=== PATIENT | female | born 1965 | race Caucasian/White ===

== ENCOUNTER 2019-09-11 17:19 | Outpatient (CLI) | payer BC, SELFPAY ==
--- NOTE | ~2019-09-11 | XR_ITS ---
EXAMINATION: XR chest 2V DATE: 09/11/2019 17:32 INDICATION: Shortness of breath TECHNIQUE: PA and lateral views of the chest are obtained. COMPARISON: 06/04/2010 FINDINGS: The lungs are free of acute opacities. There is no pleural effusion or pneumothorax. The ca rdiomediastinal silhouette is normal. There is mild thoracic spondylosis. Surgical clips in the upper abdomen on the lateral view are likely from prior cholecystectomy. IMPRESSION: 1. No acute cardiopulmonary abnormality. Reviewed, dictated and finalized at location A.
== END 2019-09-11 17:20 ==
PROVIDERS: PCP Family Medicine; Visit Provider Nurse Practitioner Family
DX: R06.02 Shortness of breath (principal)
CPT/HCPCS: 71046

== ENCOUNTER → 2020-01-12 11:58 | Outpatient (CLI) | payer BC, SELFPAY ==
--- NOTE | ~2020-01-12 | XR_ITS ---
XR lumbar spine 2-3V DATE: 01/12/2020 12:19 INDICATION: Low back pain TECHNIQUE: Standing AP and lateral and coned lateral lumbosacral views COMPARISON: 08/08/2005 lumbar spine FINDINGS: There is diffuse osteopenia. No fracture or spondylolisthesis is evident. The included lower thoracic and lumbar pedicles are inta ct. Lumbar and lumbosacral interspaces are well preserved. Surgical clips overlie the right upper quadrant, consistent with cholecystectomy. IMPRESSION: Osteopenia Reviewed, dictated and finalized at location A. IMPRESSION: Osteopenia
== END ==
PROVIDERS: PCP Family Medicine; Visit Provider Physician Assistant Medical
DX: M54.5 Low back pain (principal); M85.88 Other specified disorders of bone density and structure, other site
CPT/HCPCS: 72100

== ENCOUNTER → 2020-01-31 11:36 | Outpatient (CLI) | payer BC, SELFPAY ==
--- NOTE | ~2020-01-31 | DEXA_ITS ---
Bone Density Report Name: Cary Jasso Age: 54 Sex: Female Ethnicity: White Date of : 1965 Indication: postmenopausal; screening for osteoporosis; parental hip fracture; height loss; hysterectomy; Referring Provider: Michelle Alberto Study: Bone densitometry was performed. Exam Date: January 31, 2020 Accession number: [id number] Bone Density: Region BMD T-score Z-score Classification AP Spine (L1-L4) 0.710 -3.1 -2.0 Osteoporosis Femoral Neck (Left) 0.571 -2.5 -1.5 Osteoporosis Total Hip (Left) 0.702 -2.0 -1.3 Osteopenia Femoral Neck (Right) 0.598 -2.3 -1.2 Osteopenia Total Hip (Right) 0.712 -1.9 -1.2 Osteopenia Total Hip Mean 0.707 -2.0 -1.3 Osteopenia World Health Organization criteria for BMD impression classify patients as: Normal (T-score at or above -1.0), Osteopenia (T-score between -1.0 and -2.5), or Osteoporosis (T-score at or below -2.5). 10-year Fracture Risk: FRAX not reported because: Some T-score for Spine Total or Hip Total or Femoral Neck at or below -2.5 Clinical Information Provided by Patient: Parent has had a hip fracture Has the following medical conditions: Hysterectomy Patient maximum height was 66 Menopause Age: 30 No regular weight bearing exercise Does not regularly consume dairy products Drinks caffeinated beverages Onset of menses at age 12 Number of children 2 Impression: The patient has osteoporosis, based on the Total Spine T-score. The patient has risk factors, including: parental hip fracture. Discussion: HIGH RISK OF FRACTURE. BONE DENSITY IS UNDESIRABLY LOW AT ONE OR MORE SKELETAL SITES, CONSISTENT WITH OSTEOPOROSIS. ALSO, BONE DENSITY IS LOWER THAN EXPECTED FOR AGE AND SEX AT ONE OR MORE SKELETAL SITES; RECOMMEND A DILIGENT SEARCH FOR SECONDARY CAUSES OF BONE LOSS. This patient's lowest T-score meets the World Health Organization's (WHO) criteria for osteoporosis at one or more sites (T-score -2.5 or below). In untreated patients, the risk of osteoporotic fracture increases approximately two-fold for each 1.0 SD decrease in T-score. Low bone density is not the only risk factor for fracture; also consider factors such as patient's age, frailty or poor health, risk of falling, risk of injury, previous osteoporotic fracture, family history of osteoporosis, cigarette smoking, low body weight, etc. Not everyone with low bone mineral density has osteoporosis; osteomalacia and other metabolic bone disorders should also be considered. Patients who have osteoporosis should be evaluated for specific diseases and conditions (secondary causes) that may cause or contribute to bone loss. The [place] [employer]ocr[employer] (AACE) and National Osteoporosis Foundation (NOF) recommend pharmacologic intervention for all postmenopausal women whose T-score is in this
== END ==
PROVIDERS: PCP Family Medicine; Visit Provider Nurse Practitioner Family
DX: M85.88 Other specified disorders of bone density and structure, other site (principal); M81.0 Age-related osteoporosis without current pathological fracture; M85.852 Other specified disorders of bone density and structure, left thigh; M85.851 Other specified disorders of bone density and structure, right thigh
CPT/HCPCS: 77080

== ENCOUNTER → 2020-03-08 14:51 | Outpatient (CLI) | payer BC, SELFPAY ==
--- NOTE | ~2020-03-08 | MM_ITS ---
EXAMINATION: MM screening hernan BI w gautam HISTORY: Screening TECHNIQUE: Craniocaudal and mediolateral oblique 3-D tomosynthesis images were obtained and synthetic 2-D images were generated. CAD analysis was submitted and interpreted. COMPARISON: Comparison to multiple prior studies sequentially, with oldest reviewed study dated 01/2010. BREAST PARENCHYMAL COMPOSITION: There are scattered areas of fibroglandular density. FINDINGS: The right breast is stable without evidence for malignancy. There is a new cluster of branc sanford pleomorphic calcifications in the upper outer quadrant of the left breast. IMPRESSION: 1. New cluster of pleomorphic branching calcifications, upper outer quadrant of the left breast, midd le depth. 2. Magnification views are recommended. BI-RADS Category 0: Incomplete: Needs additional imaging evaluation. Reviewed, dictated and finalized at location A. IMPRESSION: 1. New cluster of pleomorphic branching calcifications, upper outer quadrant of the left breast, middle depth. 2. Magnification views are recommended. BI-RADS Category 0: Incomplete: Needs additional imaging evaluation.
== END ==
PROVIDERS: PCP Family Medicine; Visit Provider Family Medicine
DX: Z12.31 Encounter for screening mammogram for malignant neoplasm of breast (principal); R92.8 Other abnormal and inconclusive findings on diagnostic imaging of breast
CPT/HCPCS: 77063; 77067

== ENCOUNTER → 2020-03-22 08:30 | Outpatient (CLI) | payer BC, SELFPAY ==
--- NOTE | ~2020-03-22 | MM_ITS ---
EXAMINATION: MM diagnostic mammo unilat LT HISTORY: Microcalcifications TECHNIQUE: Additional 3-D ML tomosynthesis images and magnification views of the left breast were per formed and synthetic 2-D images were generated. CAD analysis was submitted and interpreted. COMPARISON: 01/10/2019 bilateral digital screening mammogram 03/08/2020 bilateral digital screening mammogram FINDINGS: There is a new cluster of grouped pleomorphic microcalcifications in the upper outer quadra nt of the left breast at mid depth, including linear and branching microcalcifications, very suspicio us for malignancy. Stereotactic biopsy is recommended. IMPRESSION: 1. New grouped pleomorphic microcalcifications in upper outer quadrant of left breast at mid depth, s uspicious for malignancy 2. Stereotactic biopsy is recommended BI-RADS category 4, suspicious findings. Dr. Teague telephoned the results and stereotactic biopsy recommendation to Dr. Moses's nurse practi lupillo Martinez on 03/22/2020 at 0902 hours. Reviewed, dictated and finalized at location A. IMPRESSION: 1. New grouped pleomorphic microcalcifications in upper outer quadrant of left breast at mid depth, suspicious for malignancy 2. Stereotactic biopsy is recommended BI-RADS category 4, suspicious findings. Dr. Teague telephoned the results and stereotactic biopsy recommendation to Dr. Elena paulson's nurse practitioner Michelle on 03/22/2020 at 0902 hours.
== END ==
PROVIDERS: Visit Provider Nurse Practitioner Family
DX: R92.8 Other abnormal and inconclusive findings on diagnostic imaging of breast (principal)
CPT/HCPCS: 77065

== ENCOUNTER 2020-04-02 10:39 | Outpatient (CLI) | payer BC, SELFPAY ==
--- NOTE | ~2020-04-02 | MM_ITS ---
MM stereotactic specimen LT, MM post biopsy diagnostic LT, MM stereotactic bx LT 04/02/2020 11:49 (accession [id number]), 04/02/2020 11:48 (accession [id number]), 04/02/2020 11:46 (accession [id number]) EXAMINATION: MM stereotactic specimen LT, MM post biopsy diagnostic LT, MM stereotactic bx LT INDICATION: Abnormal calcifications in the left breast. Stereotactic core biopsy is requested evalua te for malignancy.] TECHNIQUE AND FINDINGS: The risks and potential benefits of the procedure were discussed with the patient and written informe d consent was obtained. The patient was placed in the prone position clustered at the table with the left breast in mediolateral compression, and the area of interest was localized and targeted utilizi ng digital imaging with stereotaxis. After sterile preparation of the skin, 1% lidocaine was utilized for local anesthesia at the skin pun cture site and 1% lidocaine with epinephrine was utilized for deeper local anesthesia/is about the bi opsy site. A 9G Conexus-IT vacuum assisted biopsy needle was advanced to the level of the calcification o f interest from a lateral approach utilizing stereotactic guidance and a total of 8 tissue core biops ies were obtained. A specimen radiograph demonstrates that the calcifications of interest are included within the tissue cores. A tissue marker clip was then placed at the biopsy site. The needle was removed and hemosta sis was achieved. The patient tolerated the procedure well and there is no evidence of significant i mmediate complication. The patient was given verbal as well as written postprocedural instructions p rior to discharge from the department. Tissue cores were submitted to surgical pathology for histolo gic analysis. A 2-view left unilateral digital mammogram was obtained post procedure and this demonstrates that the tissue marker clip is in expected position.] IMPRESSION: 1. Successful stereotactic biopsy of calcifications in the upper outer quadrant of the left breast, followed by tissue marker clip placement. Please refer to pathology report for histologic analysis. Reviewed, dictated and finalized at location A. IMPRESSION: 1. Successful stereotactic biopsy of calcifications in the upper outer quadran t of the left breast, followed by tissue marker clip placement. Please refer t o pathology report for histologic analysis. IMPRESSION: 1. Successful stereotactic biopsy of calcifications in the upper outer quadran t of the left breast, followed by tissue marker clip placement. Please refer t o pathology report for histologic analysis.
== END 2020-04-02 10:40 | disposition home or self-care (01) ==
PROVIDERS: PCP Family Medicine; Visit Provider Nurse Practitioner Family
DX: R92.8 Other abnormal and inconclusive findings on diagnostic imaging of breast (principal); C50.412 Malignant neoplasm of upper-outer quadrant of left female breast
CPT/HCPCS: 19081; 77065; 88305; 88342; A4648

== ENCOUNTER 2020-04-24 01:47 | Outpatient (CLI) | payer BC, SELFPAY ==
[2020-04-24 18:17] LABS: SARS-CoV-2 RNA PCR Negative
== END 2020-04-24 01:48 | disposition home or self-care (01) ==
LOC: ANHCOVIDDT 01:47
PROVIDERS: PCP Family Medicine; Visit Provider Surgery
DX: Z01.812 Encounter for preprocedural laboratory examination (principal); Z20.828 Contact with and (suspected) exposure to other viral communicable diseases
CPT/HCPCS: 87635; C9803; U0003

== ENCOUNTER 2020-04-24 09:04 | Outpatient (CLI) | payer BC, SELFPAY ==
--- NOTE | 2020-04-24 09:06 | ECG_ITS ---
Measurements Intervals [place] Rate: 86 P: 9 AR: 115 QRS: 37 QRSD: 94 T: -18 QT: 367 QTc: 439 Interpretive Statements SINUS RHYTHM WITH SHORT AR INTERVAL LOW QRS VOLTAGE IN PRECORDIAL LEADS DELAYED PRECORDIAL R/S TRANSITION BORDERLINE ST-T WAVE ABNORMALITY- ANTEROLAT/INF LEADS BORDERLINE ECG Electronically Signed On 04-24-2020 9:48:50 CDT by Braydon Ojeda D.O.
== END 2020-04-24 09:05 | disposition home or self-care (01) ==
LOC: ANHSURGERY 09:06
PROVIDERS: PCP Family Medicine; Visit Provider Surgery
DX: E78.5 Hyperlipidemia, unspecified (principal); Z01.818 Encounter for other preprocedural examination; R94.31 Abnormal electrocardiogram [ECG] [EKG]
CPT/HCPCS: 93005

== ENCOUNTER 2020-04-26 01:38 | Day surgery (SDC) | payer BC, SELFPAY ==
[2020-04-17 14:28] VITALS: BMI 25.8
[2020-04-26] VITALS (9 sets, daily range): BP systolic 93–112; BP diastolic 50–68; PULSE 77–89; RESP 13–18; TEMP 36.2–36.8; O2SAT 93–99
--- NOTE | ~2020-04-26 | NM_ITS ---
EXAMINATION: NM sentinel node inject only INDICATION: Ductal carcinoma in situ of the left breast TECHNIQUE: 1.033 mCi Tc 99m Lymphoseek were injected in 4 aliquots in the upper outer quadrant of the breast near the areola. No images were obtained. IMPRESSION: 1. Status post left breast sentinel lymph node radiopharmaceutical injection. Reviewed, dictated and finalized at location A.
--- NOTE | ~2020-04-26 | MM_ITS ---
EXAMINATION: MM needle loc LT, MM surgical specimen LT DATE: 04/26/2020 12:13 (accession [id number]), 04/26/2020 15:33 (accession [id number]) INDICATION: Carcinoma in situ of the left breast TECHNIQUE: The procedure for a mammography-guided needle localization was discussed with the patient. Risks and benefits were detailed including risks of bleeding and infection. The patient verbalized u nderstanding and agreed to proceed. A time out was performed to verify the patient's name, date of , and site of procedure. The julianne ent was placed in mediolateral compression, and the skin overlying the outer left breast was prepared in usual fashion. The skin and subcutaneous soft tissues were infiltrated with 1% lidocaine for loca l anesthesia. Utilizing mammography guidance, a needle was advanced into the left breast. Two confirm atory films were obtained. The patient tolerated procedure without immediate complication. A specimen radiograph was performed. FINDINGS: Two view confirmatory films of the left breast demonstrate a needle with tip adjacent to th e biopsy marker. The biopsy marker and suspicious calcifications are contained within the surgical sp ecimen. IMPRESSION: 1. Successful mammography-guided left breast needle localization. Reviewed, dictated and finalized at location A. IMPRESSION: 1. Successful mammography-guided left breast needle localization.
--- NOTE | 2020-04-26 11:28 | SUR.PREOP ---
1100: PT TO MAMMS/US FOR LT BREAST NL WITH SNMI TO FOLLOW.DR. ARELLANO AWARE.
[2020-04-26] MEDS: LACTATED RINGERS 1,000 ML 30 ML IV CONT ×2 (12:45→16:04)
--- NOTE | 2020-04-26 13:11 | P.PNAN_ITS ---
Anes - Initial Pre Proc Eval Procedure: Operation Date: 04/26/20 13:30 Proposed Procedures p Left Axillary [place] Lymph Node Biopsy - Quirino Mancilla MD s Left Breast Lumpectomy With Ultrasound And/Or Mammogram Guided Needle Localization - Quirino Mancilla MD Date/Time: 04/26/20 13:11 Surgeon: Quirino Mancilla MD Pre Op Diagnosis: DCIS Left Breast Patient Data Age: 54 Gender: F Height: 1.68 m Weight: 73.3 kg Last Vital Signs Temp 36.8 C 04/26/20 10:32 Pulse 89 04/26/20 10:32 Resp 18 04/26/20 10:32 BP 106/68 04/26/20 10:32 Pulse Ox 98 04/26/20 10:32 Allergies Allergy/AdvReac Type Severity Reaction Status Date / Time Influenza Virus Vaccines Allergy Severe RASH Verified 04/26/20 11:20 codeine Allergy Unknown VOMITING, Verified 04/26/20 11:20 HIVES Sulfa (Sulfonamide AdvReac Mild Hives Verified 04/26/20 11:20 Antibiotics) Home Medications Medication Instructions Recorded Confirmed Type rosuvastatin 20 mg tablet 20 mg PO DAILY #90 tablet 02/28/20 04/26/20 Rx calcium carbonate 600 mg (1,500 1 cap PO DAILY 04/15/20 04/26/20 History mg)-vitamin D3 500 unit capsule alendronate 70 mg PO WEEKLY 04/17/20 04/26/20 History doxylamine succinate [Unisom 50 mg PO HS PRN 04/17/20 04/26/20 History (doxylamine)] trazodone 50 - 100 mg PO HS 04/17/20 04/26/20 History Patient hx anesthesia problems: none Family hx anesthesia problems: none [facility] Past Medical History Medical History Carcinoma of left breast Hyperlipidemia Surgical History Surgical History H/O left breast biopsy excisional bx left breast H/O oophorectomy H/O total hysterectomy History of tubal ligation Hx laparoscopic cholecystectomy Hx of cardiac cath Family History Family History Sibling Family history of malignant neoplasm of breast in first degree relative Father Family history of Alzheimer's disease Family history of congestive heart failure Other Family history of malignant neoplasm of breast Social History Social History (Reviewed 04/15/20 @ 13:12 by Alyssa Powers [facility]) Smoking packs per day: 0.75 Smoking cigarettes per day: 15.0 Years smoked: 35 Smoking pack-years: 26.25 Smoking status: Current every day smoker Tobacco type: cigarettes Second hand tobacco smoke exposure: Yes Smoking end date: 06/28/93 Alcohol intake: current Spiritual care concerns: No Anes - Eval Final PreProcedure Day of Procedure 04/26/20 13:11 Patient weight: overweight Heart: regular rate and rhythm Lungs: clear to auscultation and normal air movement Airway: Mallampati scale class 1 Neurological: alert and oriented Last oral intake: >/= 8 hours ASA classification: III Emergent: no Anesthetic plan: proceed Anesthesia type and monitoring: general LMA and standard monitoring Informed Consent: The patient's anesthetic plan and its attendant risks and benefits were discussed with the patient/family/POA. Questions were solicited and answers provided to the satisfaction of the patient/family/POA.
--- NOTE | 2020-04-26 13:40 | WPDHPUPDATE1 ---
History and Physical Update Update Date/Time: 04/26/20 13:40 History and Physical has been reviewed, including an updated exam of the patient. There are NO changes in the patient's condition. Risks, benefits, and alternatives have been discussed and questions answered. Patient agrees to proceed with procedure.
[2020-04-26] MEDS: ceFAZolin 2 GM/D5W 50 ML 2 GM/50 ML BAG IVPB (14:00)
[2020-04-26] MEDS: BUPIVACAINE/EPINEPHRINE 0.5% 10 ML VIAL 20 ML INFILTRATE (15:55)
[2020-04-26] MEDS: ISOSULFAN BLUE 1% INJ 5 ML VIAL SUB-Q (16:05)
--- NOTE | 2020-04-26 16:07 | SUR.OPER ---
Lumpectomy Incision @ 1511 Excision @ 1524 Out of room @ 1526 Mammography specimen tip and calcifications confirmation @ 1534
[2020-04-26] MEDS: fentaNYL CITRATE INJ (*CRX) 100 MCG/2 ML VIAL 25 MCG IV PUSH ×2 (16:31→16:36)
--- NOTE | 2020-04-26 17:06 | PM.PROC ---
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 She also had infiltration of radioisotope under the left nipple for sentinel node biopsy. Following this, I reviewed the x-rays and talked with Dr. Waller, the radiologist. The patient was taken to surgery and induced into general anesthesia per LMA. The left breast as well as the left axilla were prepped and draped. The left arm and shoulder were prepped and draped such that the arm was mobile and prepped into the field. Care was taken as to not disturb the localizing wire emanating from the lateral aspect of the left breast. Lymphazurin blue dye was infiltrated under the left nipple. Gentle breast massage was carried out to allow this to migrate to axillary lymph nodes. I then used the navigator and searched for lymph nodes with high isotope emission. A particular area was found and marked with an X. I then marked a hairline incision in the left axilla. Local anesthesia was infiltrated in this proposed incision. Incision was made and dissection was carried down through the superficial subcutaneous. I then used the navigator again and focused further dissection in the direction of the high isotope emission. We saw dye stained lymphatics and eventually found a very high isotope emitting lymph node consistent with sentinel lymph node 1. This node did not have dye staining. It did seem to be associated with the dye stained lymphatics. This node was dissected free primarily with the cautery. Lymphatics were clipped. Once out of the field, I checked the lymph node again and it had very high isotope emission. It was sent to pathology labeled sentinel lymph node 1. I then searched for additional sentinel lymph nodes in the left axilla. I could not find any that had the isotope emission of sentinel node 1, but did find some deeper in the axilla with fairly high isotope emission. No further lymphatics of dye staining were encountered. I dissected out this additional lymph node. It did not have dye staining. Once dissected out I rechecked it with the navigator and again a high isotope emission was found. This was sent as sentinel lymph node 2. I searched for additional nodes and really none were found. I dissected out a lymph node but it really did not have much in the way of isotope emission. It was sent as an additional left axillary node, not a sentinel lymph node. From there we checked the axilla for hemostasis which was excellent. The axilla was closed in layers with a deep layer of interrupted 3 0 Monocryl. The superficial layer of 3 0 Monocryl subcuticular skin sutures was placed. Finally the axillary wound was closed at the skin level with a running 4 0 Monocryl skin suture. The area was cleaned and a blue towel was placed over the area to quarantine it from the breast surgery. We then turned our attention to the left breast. After again reviewing the films, a radial type incision in the lateral left breast just medial to the exit of the guidewire was marked on the skin. Local was infiltrated in the area of the anticipated incision. Incision was made and dissection was carried down obliquely until we encountered the wire. The wire was then pulled through the skin and out the wound. I dissected posterior to the wire so that it was more mobile. We continued our subcutaneous dissection a bit more and then proceeded with the lumpectomy. A generous lumpectomy was created taking all the tissue around the wire with the fairly uniform radius of about 3 cm. I continu
[2020-04-26] MEDS: oxyCODONE HCL (*CRX) 5 MG TAB IR PO (17:48)
== END 2020-04-26 18:25 | disposition home or self-care (01) ==
PROVIDERS: PCP Family Medicine; Visit Provider Surgery
PROC: (CPT 38525; principal; 2020-04-26 13:30)
PROC: (CPT 19301; 2020-04-26 13:30)
DX: D05.12 Intraductal carcinoma in situ of left breast (principal); E78.5 Hyperlipidemia, unspecified; Z87.891 Personal history of nicotine dependence
CPT/HCPCS: 19301; 38525; 19281; 38792; 76098; 88305; 88307; 88342; A9270; A9520; C1713; C1769; J0690; J1100; J2250; J2405; J2704; J3010; J7120

== ENCOUNTER 2020-04-28 19:31 | Emergency (ER) | payer BC, SELFPAY ==
[2020-04-28 19:38] VITALS: BP 132/81; PULSE 103; RESP 18; TEMP 36.3; O2SAT 97
--- NOTE | 2020-04-28 19:44 | ED.NAVMDI ---
HPI - Nausea/Vomiting/Diarrhea General Chief complaint: Nausea/Vomiting/Diarrhea Stated complaint: n/v,WILSON, post op Time Seen by Provider: 04/28/20 19:43 History of Present Illness HPI Narrative: 54 yo female w/ h/o hyperlipidemia, DCIS presents to the ED for nausea, vomiting, and headache. She has felt nauseated and vomited a few times throughout the day today. She also reports a moderate intermittent frontal headache. She had a lumpectomy and sentinel node biopsy done on Wednesday by Dr. Mancilla. She is concerned that she might have an infection of her surgical site because of her symptoms. Related Data Home Medications Medication Instructions Recorded Confirmed calcium carbonate 600 mg (1,500 1 cap PO DAILY 04/15/20 04/26/20 mg)-vitamin D3 500 unit capsule Unisom (doxylamine) 50 mg PO HS PRN 04/17/20 04/26/20 alendronate 70 mg PO WEEKLY 04/17/20 04/26/20 trazodone 50 - 100 mg PO HS 04/17/20 04/26/20 Allergies Allergy/AdvReac Type Severity Reaction Status Date / Time Influenza Virus Vaccines Allergy Severe RASH Verified 05/09/20 08:54 codeine Allergy Unknown VOMITING, Verified 05/09/20 08:54 HIVES Sulfa (Sulfonamide AdvReac Mild Hives Verified 05/09/20 08:54 Antibiotics) Review of Systems Review of Systems: All systems reviewed & are unremarkable except as noted in HPI and below Constitutional: Constitutional: Denies fever(s) Cardiovascular: Cardiovascular: Denies chest pain Respiratory: Respiratory: Denies cough and Denies dyspnea Gastrointestinal: Gastrointestinal: Denies abdominal pain, Reports nausea and Reports vomiting Genitourinary: Genitourinary: Denies hematuria and Denies dysuria [facility] Past Medical History Medical History Carcinoma of left breast Hyperlipidemia Surgical History Surgical History H/O left breast biopsy excisional bx left breast H/O oophorectomy H/O total hysterectomy History of tubal ligation Hx laparoscopic cholecystectomy Hx of cardiac cath Family History Family History Sibling Family history of malignant neoplasm of breast in first degree relative Father Family history of Alzheimer's disease Family history of congestive heart failure Other Family history of malignant neoplasm of breast Social History Social History Smoking packs per day: 0.75 Smoking cigarettes per day: 15.0 Years smoked: 35 Smoking pack-years: 26.25 Tobacco type: cigarettes Second hand tobacco smoke exposure: Yes Smoking end date: 06/28/93 Alcohol intake: current Spiritual care concerns: No Exam Const: General: no acute distress and alert Orientation/consciousness: patient oriented x3 HENMT: Head: normal to inspection Neck: Neck: normal visual inspection Chest: Other: Significant bruising arouns left breast incision. No significant warmth or induration. Resp: Effort & Inspection: normal respiratory effort Auscultation: clear to auscultation bilaterally, no rales, no rhonchi and no wheezes Cardio: Rate: regular rate Rhythm: regular rhythm Heart sounds: no murmurs GI: Inspection: non-distended GI Palp: Yes Soft to palpation and No Tenderness to palpation present (GI) Neuro: General: patient oriented x3 and moves all extremities Speech: normal speech Extrem: General: no edema Psych: Appearance: well kempt Affect: normal affect Course Vital Signs Vital signs: Vital Signs Temperature 36.3 C L 04/28/20 19:38 Pulse Rate 103 H 04/28/20 19:38 Respiratory Rate 18 04/28/20 19:38 Blood Pressure 132/81 04/28/20 19:38 Pulse Oximetry 97 04/28/20 19:38 Temperature 36.3 C L 04/28/20 19:38 Pulse Rate 83 04/28/20 21:34 Respiratory Rate 16 04/28/20 21:34 Blood Pressure 121/70 04/28/20 21:34 Pulse Oximetry 9
[2020-04-28] MEDS: METOCLOPRAMIDE HCL INJ 10 MG/2 ML VIAL IV PUSH (20:20)
[2020-04-28] MEDS: SODIUM CHLORIDE 0.9% IV 1,000 ML 999 ML IV CONT (20:21)
[2020-04-28 20:28] LABS: Basophils Percent Auto 0.2 % (0.2-1.2); Eosinophils Absolute Auto 0.2 K/mm3 (0-0.3); Eosinophils Percent Auto 1.4 % (0-4.4); Hematocrit 44.4 % (37.0-47.0); Hemoglobin 14.3 g/dL (12.0-15.0); Immature Granulocyte Absolute 0.07 K/mm3 (0.00-0.031); Immature Granulocyte Percent A 0.5 % (0-0.5); Lymphocytes Absolute Auto 1.99 K/mm3 (0.9-3.2); Lymphocytes Percent Auto 15.6 % (18.3-44.2); Mean Corpuscular HGB Conc 32.2 g/dl (32-36); Mean Corpuscular Hemoglobin 27.8 pg (26-34); Mean Corpuscular Volume 86.4 fl (80-100); Mean Platelet Volume 10.1 fl (7.4-10.4); Monocytes Absolute Auto 0.8 K/mm3 (0.1-0.6); Neutrophils Absolute Auto 9.7 K/mm3 (1.3-6.7); Neutrophils Percent Auto 76.3 % (45.5-73.1); Platelet Count Result 329 k/mm3 (150-375); Red Blood Count 5.14 M/mm3 (4.2-5.4); Red Cell Distribution Width 13.8 % (11.5-14.5); White Blood Count 12.8 K/mm3 (4.5-10.0)
[2020-04-28 20:50] LABS: Alanine Aminotransferase 247 U/L (4-35); Albumin Level 4.3 g/dL (3.5-5.1); Alkaline Phosphatase 115 U/L (38-126); Anion Gap 9 mmol/L (8-16); Aspartate Amino Transferase 87 U/L (14-36); Bilirubin,Total 0.4 mg/dL (0.2-1.3); Blood Urea Nitrogen 8 mg/dL (7-17); Calcium 9.3 mg/dL (8.4-10.2); Carbon Dioxide 27 mmol/L (22-30); Chloride 103 mmol/L (98-107); Estimated CRCL calculation 74 ml/min; Estimated Glomerular Filt Rate > 60; Glucose 132 mg/dL (65-105); Potassium 3.8 mmol/L (3.4-5.0); Sodium 139 mmol/L (137-145)
[2020-04-28 20:59] LABS: Add Urine Microscopic? YES; Appearance Urine Clear (Clear); Bacteria Urine Trace /hpf; Bilirubin Urine Negative (Negative); Blood Urine 1+ (Negative); Color Urine Straw (Yellow); Glucose Urine UA Negative (Negative); Ketones Urine Negative (Negative); Leukocyte Esterase Ur Negative LEU/UL (Negative); Nitrate Urine Negative (Negative); Protein Urine Negative (Negative); RBC Urine 0-2 /hpf (0-2); Specific Grav Ur 1.005 (1.001-1.035); Squamous Epithelial Cell Urine Occasional /hpf (Few); Urobilinogen Urine Negative mg/dL (<2.0); WBC Urine 0-3 /hpf
[2020-04-28 21:34] VITALS: BP 121/70; PULSE 83; RESP 16; O2SAT 98
== END 2020-04-28 22:00 | disposition home or self-care (01) ==
PROVIDERS: Emergency Provider Emergency Medicine; PCP Family Medicine
DX: R11.2 Nausea with vomiting, unspecified (principal); E78.5 Hyperlipidemia, unspecified; Z85.3 Personal history of malignant neoplasm of breast; F17.210 Nicotine dependence, cigarettes, uncomplicated
CPT/HCPCS: 36415; 80053; 81001; 85025; 96361; 96365; 96375; 99284; J0131; J2765; J7030

== ENCOUNTER 2020-09-05 12:06 | Emergency (ER) | payer BC, SELFPAY ==
--- NOTE | ~2020-09-05 | XR_ITS ---
EXAMINATION: XR ankle RT min 3V INDICATION: Right ankle pain TECHNIQUE: Four views of the right ankle are obtained. COMPARISON: None available FINDINGS: There is no fracture, dislocation, or subluxation. The bones, soft tissues, and joint space s are normal. IMPRESSION: 1. No acute osseous abnormality. Reviewed, dictated and finalized at location A. CTOR IMMUNOLOGY
[2020-09-05 12:23] VITALS: BP 116/78; PULSE 97; RESP 16; TEMP 36.2; O2SAT 97
--- NOTE | 2020-09-05 13:19 | ED.GENADULT ---
HPI - General Adult General Chief complaint: Extremity Injury, Lower <Heber Sepulveda PA-C - Last Filed: 09/05/20 13:22> Stated complaint: right ankle injury <Heber Sepulveda PA-C - Last Filed: 09/05/20 13:22> Time Seen by Provider: 09/05/20 12:34 <Heber Sepulveda PA-C - Last Filed: 09/05/20 13:22> Source: patient <Heber Sepulveda PA-C - Last Filed: 09/05/20 13:22> Mode of arrival: ambulatory <Heber Sepulveda PA-C - Last Filed: 09/05/20 13:22> Limitations: no limitations <Heber Sepulveda PA-C - Last Filed: 09/05/20 13:22> History of Present Illness HPI narrative: Patient is a 55-year-old female who presents to emergency department for evaluation of right ankle injury that occurred today while walking noting that she rolled the ankle patient notes mild aching pain worse with weightbearing and activity denies other injuries or complaints has not take anything for her symptoms presents per private vehicle in no distress <Heber Sepulveda PA-C - Last Filed: 09/05/20 13:22> Related Data Home medications: Home Medications Medication Instructions Recorded Confirmed calcium carbonate 600 mg (1,500 1 cap PO DAILY 04/15/20 09/02/20 mg)-vitamin D3 500 unit capsule tamoxifen mg 09/05/20 09/05/20 <Heber Sepulveda PA-C - Last Filed: 09/05/20 13:22> Allergies/adverse reactions: Allergies Allergy/AdvReac Type Severity Reaction Status Date / Time Influenza Virus Vaccines Allergy Severe RASH Verified 09/05/20 12:07 codeine Allergy Unknown VOMITING, Verified 09/05/20 12:07 HIVES Sulfa (Sulfonamide AdvReac Mild Hives Verified 09/05/20 12:07 Antibiotics) <Heber Sepulveda PA-C - Last Filed: 09/05/20 13:22> Review of Systems Review of Systems: All systems reviewed & are unremarkable except as noted in HPI and below <Heber Sepulveda PA-C - Last Filed: 09/05/20 13:22> PMFSH Past Medical History Medical History: Medical History BMI 25.0-25.9,adult Carcinoma of left breast Hyperlipidemia <Heber Sepulveda PA-C - Last Filed: 09/05/20 13:22> Surgical History Surgical History: Surgical History H/O left breast biopsy excisional bx left breast H/O oophorectomy H/O total hysterectomy History of tubal ligation Hx laparoscopic cholecystectomy Hx of cardiac cath S/P breast lumpectomy 04/26/20: NL left breast lumpectomy left axillary SNBX <Heber Sepulveda PA-C - Last Filed: 09/05/20 13:22> Family History Family History: Family History Sibling Family history of malignant neoplasm of breast in first degree relative Father Family history of Alzheimer's disease Family history of congestive heart failure Familial hyperlipidemia Mother Hyperlipidemia Dementia Sibling No problems noted. 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 HEAD: Normocephalic, atraumatic. EYES: PERRLA and EOMI. ENT: Nares clear, no rhinorrhea or epistaxis. Mucous membranes moist. EXTREMITIES: Normal range of motion. No edema. Tenderness of the later
== END 2020-09-05 13:46 | disposition home or self-care (01) ==
PROVIDERS: Emergency Provider General Practice; PCP Family Medicine
DX: E78.5 Hyperlipidemia, unspecified (principal); Z85.3 Personal history of malignant neoplasm of breast; F17.210 Nicotine dependence, cigarettes, uncomplicated; M25.571 Pain in right ankle and joints of right foot; X50.9XXA Other and unspecified overexertion or strenuous movements or postures, initial encounter
CPT/HCPCS: 73610; 99283

== ENCOUNTER 2020-12-04 09:22 | Outpatient (CLI) | payer BC, SELFPAY ==
[2020-12-04 09:45] LABS: Basophils Percent Auto 0.3 % (0.2-1.2); Eosinophils Absolute Auto 0.1 K/mm3 (0-0.3); Eosinophils Percent Auto 0.7 % (0-4.4); Hematocrit 43.7 % (37.0-47.0); Immature Granulocyte Absolute 0.04 K/mm3 (0.00-0.031); Immature Granulocyte Percent A 0.3 % (0-0.5); Lymphocytes Absolute Auto 1.37 K/mm3 (0.9-3.2); Lymphocytes Percent Auto 9.9 % (18.3-44.2); Mean Corpuscular Hemoglobin 27.6 pg (26-34); Mean Corpuscular Volume 86.2 fl (80-100); Mean Platelet Volume 10.6 fl (7.4-10.4); Monocytes Absolute Auto 0.7 K/mm3 (0.1-0.6); Monocytes Percent Auto 5.3 % (2.6-8.5); Neutrophils Absolute Auto 11.6 K/mm3 (1.3-6.7); Neutrophils Percent Auto 83.5 % (45.5-73.1); Platelet Count Result 267 k/mm3 (150-375); Red Blood Count 5.07 M/mm3 (4.2-5.4); Red Cell Distribution Width 14.1 % (11.5-14.5); White Blood Count 13.9 K/mm3 (4.5-10.0)
[2020-12-04 09:49] LABS: Blood Urea Nitrogen 21 mg/dL (8-26); Carbon Dioxide 23 mmol/L (22-30); Chloride 107 mmol/L (98-109); Estimated Glomerular Filt Rate > 60; Glucose 101 mg/dL (70-105); Potassium 4.7 mmol/L (3.5-4.9); Sodium 141 mmol/L (138-146)
[2020-12-04 11:10] LABS: Cholesterol 202 mg/dL (0-200); HDL Direct 50 mg/dL; Triglycerides 213 mg/dL (<150)
[2020-12-04 11:13] LABS: Alanine Aminotransferase 14 U/L (4-35); Albumin Level 4.3 g/dL (3.5-5.1); Alkaline Phosphatase 62 U/L (38-126); Anion Gap 11 mmol/L (8-16); Aspartate Amino Transferase 27 U/L (14-36); Bilirubin,Total 0.2 mg/dL (0.2-1.3); Blood Urea Nitrogen 19 mg/dL (7-17); Calcium 9.6 mg/dL (8.4-10.2); Carbon Dioxide 21 mmol/L (22-30); Chloride 110 mmol/L (98-107); Estimated Glomerular Filt Rate > 60; Glucose 100 mg/dL (65-105); Potassium 4.7 mmol/L (3.4-5.0); Sodium 142 mmol/L (137-145)
[2020-12-04 11:21] LABS: LDL Cholesterol Direct 97 mg/dL
== END 2020-12-04 09:23 | disposition home or self-care (01) ==
LOC: ANHLAB 09:26
PROVIDERS: Physician Assistant Medical; PCP Family Medicine; Visit Provider Internal Medicine Hematology & Oncology
DX: E78.5 Hyperlipidemia, unspecified (principal)
CPT/HCPCS: 36415; 80048; 80053; 80061; 85025

== ENCOUNTER → 2021-04-03 07:40 | Outpatient (CLI) | payer BC, SELFPAY ==
--- NOTE | ~2021-04-03 | MMUS_ITS ---
EXAMINATION: MM diagnostic hernan BI w gautam, US breast RT limited HISTORY: History of left breast cancer and palpable abnormality at the 6:00 location of the right flavia ast. TECHNIQUE: Craniocaudal, mediolateral, and mediolateral oblique 3-D tomosynthesis images of the breas ts were performed and synthetic 2-D images were generated. CAD analysis was submitted and interpreted . High resolution limited right breast ultrasound was performed. COMPARISON: 03/22/2020, 03/08/2020, 01/10/2019, 12/07/2017 BREAST PARENCHYMAL COMPOSITION: There are scattered areas of fibroglandular density. FINDINGS: MAMMOGRAPHIC FINDINGS: There are changes of interval lumpectomy, axillary lymph node dissection, and radiation treatment in the left breast. No suspicious mass, calcification, or architectural distortion are identified in eit her breast to suggest malignancy. There is no mammographic correlate for the reported palpable abnorm ality of the right breast. ULTRASOUND: There is no evidence of focal abnormal solid or cystic mass in the vicinity of the reported palpable abnormality of concern in the right breast. IMPRESSION: 1. Expected surgical and radiation change in the left breast without suspicious findings. No specific mammographic or sonographic correlate is identified for the reported abnormality of concern in the r ight breast. Further evaluation at this time should be based on clinical assessment. Continued follow -up physical examination is recommended. 2. Recommend routine screening mammography in one year. BI-RADS Category 2: Benign finding(s). Reviewed, dictated and finalized at location A. IMPRESSION: 1. Expected surgical and radiation change in the left breast without suspicious findings. No specific mammographic or sonographic correlate is identified for the reported abnormality of concern in the right breast. Further evaluation at this time should be based on clinical assessment. Continued follow-up physical examination is recommended. 2. Recommend routine screening mammography in one year. BI-RADS Category 2: Benign finding(s).
== END ==
PROVIDERS: PCP Family Medicine; Visit Provider Internal Medicine Hematology & Oncology
DX: D05.12 Intraductal carcinoma in situ of left breast (principal)
CPT/HCPCS: 76642; 77062; 77066; G0279

== ENCOUNTER 2021-04-09 13:30 | Outpatient (CLI) | payer BC, SELFPAY ==
[2021-04-09 13:45] LABS: Basophils Percent Auto 0.5 % (0.2-1.2); Eosinophils Absolute Auto 0.1 K/mm3 (0-0.3); Eosinophils Percent Auto 0.9 % (0-4.4); Hematocrit 42.9 % (37.0-47.0); Hemoglobin 13.5 g/dL (12.0-15.0); Immature Granulocyte Absolute 0.02 K/mm3 (0.00-0.031); Immature Granulocyte Percent A 0.2 % (0-0.5); Lymphocytes Absolute Auto 2.11 K/mm3 (0.9-3.2); Lymphocytes Percent Auto 26.1 % (18.3-44.2); Mean Corpuscular HGB Conc 31.5 g/dl (32-36); Mean Corpuscular Hemoglobin 27.7 pg (26-34); Mean Corpuscular Volume 87.9 fl (80-100); Mean Platelet Volume 10.1 fl (7.4-10.4); Monocytes Absolute Auto 0.4 K/mm3 (0.1-0.6); Monocytes Percent Auto 4.7 % (2.6-8.5); Neutrophils Absolute Auto 5.5 K/mm3 (1.3-6.7); Neutrophils Percent Auto 67.6 % (45.5-73.1); Platelet Count Result 286 k/mm3 (150-375); Red Blood Count 4.88 M/mm3 (4.2-5.4); Red Cell Distribution Width 14.1 % (11.5-14.5); White Blood Count 8.1 K/mm3 (4.5-10.0)
[2021-04-09 13:49] LABS: Blood Urea Nitrogen 8 mg/dL (8-26); Carbon Dioxide 27 mmol/L (22-30); Chloride 103 mmol/L (98-109); Estimated Glomerular Filt Rate > 60; Glucose 85 mg/dL (70-105); Potassium 3.4 mmol/L (3.5-4.9); Sodium 144 mmol/L (138-146)
[2021-04-09 16:34] LABS: Alanine Aminotransferase 18 U/L (4-35); Albumin Level 4.3 g/dL (3.5-5.1); Alkaline Phosphatase 44 U/L (38-126); Anion Gap 7 mmol/L (8-16); Aspartate Amino Transferase 40 U/L (14-36); Bilirubin,Total 0.4 mg/dL (0.2-1.3); Blood Urea Nitrogen 10 mg/dL (7-17); Calcium 9.3 mg/dL (8.4-10.2); Carbon Dioxide 30 mmol/L (22-30); Chloride 107 mmol/L (98-107); Estimated Glomerular Filt Rate > 60; Glucose 87 mg/dL (65-110); Potassium 3.6 mmol/L (3.4-5.0); Sodium 144 mmol/L (137-145)
== END 2021-04-09 13:31 | disposition home or self-care (01) ==
LOC: ANHLAB 13:31
PROVIDERS: PCP Family Medicine; Visit Provider Internal Medicine Hematology & Oncology
DX: D05.12 Intraductal carcinoma in situ of left breast (principal)
CPT/HCPCS: 36415; 80048; 80053; 85025

== ENCOUNTER 2021-07-07 15:25 | Outpatient (CLI) | payer BC, SELFPAY ==
[2021-07-07 15:43] LABS: Basophils Percent Auto 0.5 % (0.2-1.2); Eosinophils Absolute Auto 0.1 K/mm3 (0-0.3); Eosinophils Percent Auto 1.3 % (0-4.4); Hematocrit 42.8 % (37.0-47.0); Hemoglobin 13.4 g/dL (12.0-15.0); Immature Granulocyte Absolute 0.03 K/mm3 (0.00-0.031); Immature Granulocyte Percent A 0.3 % (0-0.5); Lymphocytes Percent Auto 28.5 % (18.3-44.2); Mean Corpuscular HGB Conc 31.3 g/dl (32-36); Mean Corpuscular Hemoglobin 28.6 pg (26-34); Mean Corpuscular Volume 91.5 fl (80-100); Mean Platelet Volume 10.2 fl (7.4-10.4); Monocytes Absolute Auto 0.8 K/mm3 (0.1-0.6); Monocytes Percent Auto 9.5 % (2.6-8.5); Neutrophils Absolute Auto 5.3 K/mm3 (1.3-6.7); Neutrophils Percent Auto 59.9 % (45.5-73.1); Platelet Count Result 248 k/mm3 (150-375); Red Blood Count 4.68 M/mm3 (4.2-5.4); Red Cell Distribution Width 13.5 % (11.5-14.5); White Blood Count 8.8 K/mm3 (4.5-10.0)
[2021-07-07 16:44] LABS: Alanine Aminotransferase 17 U/L (4-35); Albumin Level 4.1 g/dL (3.5-5.1); Alkaline Phosphatase 50 U/L (38-126); Anion Gap 4 mmol/L (8-16); Aspartate Amino Transferase 28 U/L (14-36); Bilirubin,Total 0.3 mg/dL (0.2-1.3); Blood Urea Nitrogen 14 mg/dL (7-17); Calcium 9.6 mg/dL (8.4-10.2); Carbon Dioxide 31 mmol/L (22-30); Chloride 104 mmol/L (98-107); Estimated Glomerular Filt Rate > 60; Glucose 86 mg/dL (65-110); Sodium 139 mmol/L (137-145)
[2021-07-12 08:10] LABS: CA 15-3 13 U/mL (<32)
== END 2021-07-07 15:26 | disposition home or self-care (01) ==
PROVIDERS: PCP Family Medicine; Visit Provider Internal Medicine Hematology & Oncology
DX: D05.12 Intraductal carcinoma in situ of left breast (principal)
CPT/HCPCS: 36415; 80053; 85025; 86300

== ENCOUNTER 2021-11-10 11:05 | Outpatient (CLI) | payer BC, SELFPAY ==
[2021-11-10 11:41] LABS: Basophils Percent Auto 0.3 % (0.2-1.2); Eosinophils Percent Auto 0.3 % (0-4.4); Hematocrit 44.5 % (37.0-47.0); Hemoglobin 14.2 g/dL (12.0-15.0); Immature Granulocyte Absolute 0.02 K/mm3 (0.00-0.031); Immature Granulocyte Percent A 0.2 % (0-0.5); Lymphocytes Absolute Auto 2.15 K/mm3 (0.9-3.2); Lymphocytes Percent Auto 17.6 % (18.3-44.2); Mean Corpuscular HGB Conc 31.9 g/dl (32-36); Mean Corpuscular Hemoglobin 28.5 pg (26-34); Mean Corpuscular Volume 89.4 fl (80-100); Mean Platelet Volume 10.2 fl (7.4-10.4); Monocytes Absolute Auto 0.5 K/mm3 (0.1-0.6); Monocytes Percent Auto 4.4 % (2.6-8.5); Neutrophils Absolute Auto 9.4 K/mm3 (1.3-6.7); Neutrophils Percent Auto 77.2 % (45.5-73.1); Platelet Count Result 260 k/mm3 (150-375); Red Blood Count 4.98 M/mm3 (4.2-5.4); Red Cell Distribution Width 13.1 % (11.5-14.5); White Blood Count 12.2 K/mm3 (4.5-10.0)
[2021-11-10 13:16] LABS: Cholesterol 146 mg/dL (0-200); HDL Direct 44 mg/dL; Triglycerides 125 mg/dL (<150)
[2021-11-10 13:22] LABS: Alanine Aminotransferase 17 U/L (6-35); Albumin Level 4.3 g/dL (3.5-5.1); Alkaline Phosphatase 48 U/L (38-126); Anion Gap 2 mmol/L (8-16); Aspartate Amino Transferase 28 U/L (14-36); Bilirubin,Total 0.2 mg/dL (0.2-1.3); Blood Urea Nitrogen 14 mg/dL (7-17); Carbon Dioxide 28 mmol/L (22-30); Chloride 108 mmol/L (98-107); Estimated Glomerular Filt Rate > 60; Glucose 96 mg/dL (65-110); Potassium 4.2 mmol/L (3.4-5.0); Sodium 138 mmol/L (137-145)
[2021-11-10 13:27] LABS: LDL Cholesterol Direct 65 mg/dL
[2021-11-13 05:14] LABS: CA 15-3 10 U/mL (<32)
== END 2021-11-10 11:06 | disposition home or self-care (01) ==
LOC: ANHLAB 11:05
PROVIDERS: Nurse Practitioner Family; PCP Family Medicine; Visit Provider Internal Medicine Hematology & Oncology
DX: C50.212 Malignant neoplasm of upper-inner quadrant of left female breast (principal); F41.9 Anxiety disorder, unspecified; Z13.220 Encounter for screening for lipoid disorders; I20.1 Angina pectoris with documented spasm; Z17.0 Estrogen receptor positive status [ER+]
CPT/HCPCS: 36415; 80053; 80061; 84443; 85025; 86300

== ENCOUNTER 2021-12-22 12:21 | Outpatient (CLI) | payer BC, SELFPAY ==
[2021-12-22 14:29] LABS: Vitamin D 25 Hydroxy 47.4 ng/mL
== END 2021-12-22 12:22 | disposition home or self-care (01) ==
PROVIDERS: PCP Family Medicine; Visit Provider Nurse Practitioner Family
DX: F41.9 Anxiety disorder, unspecified (principal); E55.9 Vitamin D deficiency, unspecified
CPT/HCPCS: 36415; 82306; 84443

== ENCOUNTER 2022-02-03 15:34 | Outpatient (CLI) | payer BC, SELFPAY ==
[2022-02-03 15:55] LABS: Basophils Percent Auto 0.3 % (0.2-1.2); Eosinophils Absolute Auto 0.1 K/mm3 (0-0.3); Eosinophils Percent Auto 0.9 % (0-4.4); Hematocrit 39.5 % (37.0-47.0); Hemoglobin 12.6 g/dL (12.0-15.0); Immature Granulocyte Absolute 0.02 K/mm3 (0.00-0.031); Immature Granulocyte Percent A 0.2 % (0-0.5); Lymphocytes Absolute Auto 2.61 K/mm3 (0.9-3.2); Lymphocytes Percent Auto 30.1 % (18.3-44.2); Mean Corpuscular HGB Conc 31.9 g/dl (32-36); Mean Corpuscular Hemoglobin 27.9 pg (26-34); Mean Corpuscular Volume 87.6 fl (80-100); Mean Platelet Volume 10.2 fl (7.4-10.4); Monocytes Absolute Auto 0.6 K/mm3 (0.1-0.6); Monocytes Percent Auto 6.8 % (2.6-8.5); Neutrophils Absolute Auto 5.3 K/mm3 (1.3-6.7); Neutrophils Percent Auto 61.7 % (45.5-73.1); Platelet Count Result 263 k/mm3 (150-375); Red Blood Count 4.51 M/mm3 (4.2-5.4); Red Cell Distribution Width 12.9 % (11.5-14.5); White Blood Count 8.7 K/mm3 (4.5-10.0)
== END 2022-02-03 15:35 | disposition home or self-care (01) ==
PROVIDERS: Internal Medicine Hematology & Oncology; PCP Family Medicine; Visit Provider Family Medicine
DX: D05.12 Intraductal carcinoma in situ of left breast (principal)
CPT/HCPCS: 36415; 85025

== ENCOUNTER → 2022-05-01 16:47 | Outpatient (CLI) | payer BC, SELFPAY ==
--- NOTE | ~2022-05-01 | MM_ITS ---
EXAMINATION: MM screening hernan BI w gautam HISTORY: Screening mammogram. History of partial left mastectomy in March 2020 for malignancy. TECHNIQUE: Craniocaudal and mediolateral oblique 3-D tomosynthesis images were obtained and synthetic 2-D images were generated. CAD analysis was submitted and interpreted. COMPARISON: 04/03/2021 diagnostic bilateral mammogram and limited right breast ultrasound BREAST PARENCHYMAL COMPOSITION: There are scattered areas of fibroglandular density. FINDINGS: Surgical clips, left axillary area consistent with prior left axillary node dissection. Sca ttered bilateral benign calcifications. There is no evidence of suspicious mass, calcification, or ar chitectural distortion to suggest malignancy in either breast. There has been no suspicious interval change. IMPRESSION: 1. No mammographic evidence of malignancy. 2. Recommend routine screening mammography in one year. BI-RADS Category 2: Benign finding(s). Reviewed, dictated and finalized at location A.
== END ==
PROVIDERS: PCP Family Medicine; Visit Provider Internal Medicine Hematology & Oncology
DX: Z12.31 Encounter for screening mammogram for malignant neoplasm of breast (principal)
CPT/HCPCS: 77063; 77067

== ENCOUNTER 2022-06-01 14:52 | Outpatient (CLI) | payer BC, SELFPAY ==
[2022-06-01 15:03] LABS: Basophils Absolute Auto 0.1 K/mm3 (0.0-0.1); Basophils Percent Auto 0.5 % (0.2-1.2); Eosinophils Absolute Auto 0.1 K/mm3 (0-0.3); Hematocrit 40.9 % (37.0-47.0); Hemoglobin 13.3 g/dL (12.0-15.0); Immature Granulocyte Absolute 0.03 K/mm3 (0.00-0.031); Immature Granulocyte Percent A 0.3 % (0-0.5); Lymphocytes Absolute Auto 2.64 K/mm3 (0.9-3.2); Lymphocytes Percent Auto 28.7 % (18.3-44.2); Mean Corpuscular HGB Conc 32.5 g/dl (32-36); Mean Corpuscular Hemoglobin 28.4 pg (26-34); Mean Corpuscular Volume 87.4 fl (80-100); Mean Platelet Volume 9.9 fl (7.4-10.4); Monocytes Absolute Auto 0.6 K/mm3 (0.1-0.6); Monocytes Percent Auto 6.7 % (2.6-8.5); Neutrophils Absolute Auto 5.8 K/mm3 (1.3-6.7); Neutrophils Percent Auto 62.8 % (45.5-73.1); Platelet Count Result 287 k/mm3 (150-375); Red Blood Count 4.68 M/mm3 (4.2-5.4); Red Cell Distribution Width 13.2 % (11.5-14.5); White Blood Count 9.2 K/mm3 (4.5-10.0)
[2022-06-01 15:08] LABS: Blood Urea Nitrogen 18 mg/dL (8-26); Carbon Dioxide 29 mmol/L (22-30); Chloride 103 mmol/L (98-109); Estimated Glomerular Filt Rate 57; Glucose 85 mg/dL (70-105); Ionized Calcium (POC) 1.21 mmol/L (1.11-1.31); Potassium 3.6 mmol/L (3.5-4.9); Sodium 143 mmol/L (138-146)
[2022-06-01 16:44] LABS: Alanine Aminotransferase 16 U/L (6-35); Albumin Level 4.2 g/dL (3.5-5.1); Alkaline Phosphatase 51 U/L (38-126); Anion Gap 9 mmol/L (8-16); Aspartate Amino Transferase 23 U/L (14-36); Bilirubin,Total 0.3 mg/dL (0.2-1.3); Blood Urea Nitrogen 19 mg/dL (7-17); Calcium 9.1 mg/dL (8.4-10.2); Carbon Dioxide 28 mmol/L (22-30); Chloride 106 mmol/L (98-107); Estimated Glomerular Filt Rate 57; Glucose 87 mg/dL (65-110); Potassium 3.6 mmol/L (3.4-5.0); Sodium 143 mmol/L (137-145)
== END 2022-06-01 14:53 | disposition home or self-care (01) ==
LOC: ANHLAB 14:53
PROVIDERS: PCP Family Medicine; Visit Provider Internal Medicine Hematology & Oncology
DX: D05.12 Intraductal carcinoma in situ of left breast (principal)
CPT/HCPCS: 36415; 80047; 80053; 85025

== ENCOUNTER 2022-11-30 14:48 | Outpatient (CLI) | payer BC, SELFPAY ==
[2022-11-30 15:00] LABS: Basophils Percent Auto 0.4 % (0.2-1.2); Eosinophils Absolute Auto 0.1 K/mm3 (0-0.3); Hematocrit 39.6 % (37.0-47.0); Hemoglobin 12.7 g/dL (12.0-15.0); Immature Granulocyte Absolute 0.03 K/mm3 (0.00-0.031); Immature Granulocyte Percent A 0.4 % (0-0.5); Lymphocytes Absolute Auto 2.54 K/mm3 (0.9-3.2); Lymphocytes Percent Auto 31.1 % (18.3-44.2); Mean Corpuscular HGB Conc 32.1 g/dl (32-36); Mean Corpuscular Volume 87.4 fl (80-100); Mean Platelet Volume 9.9 fl (7.4-10.4); Monocytes Absolute Auto 0.8 K/mm3 (0.1-0.6); Monocytes Percent Auto 9.2 % (2.6-8.5); Neutrophils Absolute Auto 4.7 K/mm3 (1.3-6.7); Neutrophils Percent Auto 57.9 % (45.5-73.1); Platelet Count Result 245 k/mm3 (150-375); Red Blood Count 4.53 M/mm3 (4.2-5.4); Red Cell Distribution Width 12.7 % (11.5-14.5); White Blood Count 8.2 K/mm3 (4.5-10.0)
[2022-11-30 15:06] LABS: Blood Urea Nitrogen 15 mg/dL (8-26); Carbon Dioxide 27 mmol/L (22-30); Chloride 104 mmol/L (98-109); Estimated Glomerular Filt Rate 22; Glucose 91 mg/dL (70-105); Ionized Calcium (POC) 1.27 mmol/L (1.11-1.31); Potassium 3.8 mmol/L (3.5-4.9); Sodium 143 mmol/L (138-146)
[2022-11-30 16:18] LABS: Cholesterol 125 mg/dL (0-200); HDL Direct 49 mg/dL; Triglycerides 145 mg/dL (<150)
[2022-11-30 16:21] LABS: Alanine Aminotransferase 20 U/L (6-35); Alkaline Phosphatase 42 U/L (38-126); Anion Gap 4 mmol/L (8-16); Aspartate Amino Transferase 25 U/L (14-36); Bilirubin,Total 0.2 mg/dL (0.2-1.3); Blood Urea Nitrogen 15 mg/dL (7-17); Calcium 9.4 mg/dL (8.4-10.2); Carbon Dioxide 32 mmol/L (22-30); Chloride 106 mmol/L (98-107); Estimated Glomerular Filt Rate 23; Glucose 91 mg/dL (65-110); Potassium 3.9 mmol/L (3.4-5.0); Sodium 142 mmol/L (137-145)
[2022-11-30 16:29] LABS: LDL Cholesterol Direct 52 mg/dL
== END 2022-11-30 14:49 | disposition home or self-care (01) ==
LOC: ANHLAB 14:49
PROVIDERS: Physician Assistant Medical; PCP Family Medicine; Visit Provider Internal Medicine Hematology & Oncology
DX: D05.12 Intraductal carcinoma in situ of left breast (principal); E78.5 Hyperlipidemia, unspecified; N28.9 Disorder of kidney and ureter, unspecified
CPT/HCPCS: 36415; 80047; 80053; 80061; 85025

== ENCOUNTER → 2022-12-17 08:10 | Outpatient (CLI) | payer BC, SELFPAY ==
--- NOTE | ~2022-12-17 | US_ITS ---
US renal BI 12/17/2022 08:29 Procedure: Realtime transabdominal ultrasound of the kidneys and bladder. Indication: Chronic kidney disease stage IV Comparison: No prior studies for comparison. Findings: Renal echotexture is normal bilaterally without hydronephrosis or renal calculus. There is an isoechoic 1.7 cm left renal mass which is exophytic. The right kidney measures 11.1 cm and left ki dney measures 10.5 cm. Bladder within normal limits. Impression: 1: Isoechoic exophytic left renal mass measuring 1.7 cm. Cannot exclude renal cell carcinoma. Recomme nd correlation with MRI without and with contrast. Reviewed, dictated and finalized at location L. Impression: 1: Isoechoic exophytic left renal mass measuring 1.7 cm. Cannot exclude renal c ell carcinoma. Recommend correlation with MRI without and with contrast.
== END ==
PROVIDERS: PCP Family Medicine; Visit Provider Physician Assistant Medical
DX: N18.4 Chronic kidney disease, stage 4 (severe) (principal)
CPT/HCPCS: 76775

== ENCOUNTER 2022-12-23 12:38 | Outpatient (CLI) | payer BC, SELFPAY ==
--- NOTE | ~2022-12-23 | MR_ITS ---
EXAMINATION: MR abdomen wo/w con INDICATION: Left kidney mass TECHNIQUE: Coronal SSFSE ARC, WATER:coronal LAVA-FLEX, Coronal 2D FIESTA FatSat, Axial SSFSE BH ARC, Axial 3D DualEcho BH, Axial SSFSE-IR, Axial DWI b=500, Axial 2D FIESTA FatSat, pre and dynamic postco ntrast Axial LAVA ARC, postcontrast Coronal In and Opposed phase LAVA FLEX COMPARISON: Ultrasound, 12/17/2022 CONTRAST: Multihance, 12 cc FINDINGS: The liver, spleen, pancreas, and adrenal glands are normal. There are changes of cholecyste ctomy. There is a 1.5 cm simple cyst of the left kidney corresponding to the sonographic finding in q uestion. Cysts of the right kidney measure up to 11 mm. No suspicious kidney mass is identified. Ther e are no pathologically enlarged abdominal lymph nodes. There are no dilated loops of bowel. IMPRESSION: 1. Simple cyst of the left kidney accounting for the indeterminate mass and question on comparison ul trasound. Reviewed, dictated and finalized at location [] IMPRESSION: 1. Simple cyst of the left kidney accounting for the indeterminate mass and que stion on comparison ultrasound.
== END 2022-12-23 12:39 ==
PROVIDERS: PCP Family Medicine; Visit Provider Physician Assistant Medical
DX: N28.89 Other specified disorders of kidney and ureter (principal); N28.1 Cyst of kidney, acquired
CPT/HCPCS: 74183; A9577

== ENCOUNTER 2022-12-28 09:07 | Outpatient (CLI) | payer BC, SELFPAY ==
[2022-12-28 10:01] LABS: Hematocrit 41.9 % (37.0-47.0); Hemoglobin 13.3 g/dL (12.0-15.0); Mean Corpuscular HGB Conc 31.7 g/dl (32-36); Mean Corpuscular Hemoglobin 27.6 pg (26-34); Mean Corpuscular Volume 86.9 fl (80-100); Mean Platelet Volume 9.6 fl (7.4-10.4); Platelet Count Result 266 k/mm3 (150-375); Red Blood Count 4.82 M/mm3 (4.2-5.4); White Blood Count 7.3 K/mm3 (4.5-10.0)
[2022-12-28 10:10] LABS: Creatinine Urine 85.8 mg/dL; Total Protein Urine Random 20 mg/dL; Ur Ttl Prot Creatinine Ratio 0.23 mg/mg (0-0.20)
[2022-12-28 10:11] LABS: Albumin Level 4.3 g/dL (3.5-5.1); Anion Gap 5 mmol/L (8-16); Blood Urea Nitrogen 13 mg/dL (7-17); Calcium 9.3 mg/dL (8.4-10.2); Carbon Dioxide 29 mmol/L (22-30); Chloride 106 mmol/L (98-107); Creatine Kinase 84 U/L (30-135); Estimated Glomerular Filt Rate 57; Glucose 85 mg/dL (65-110); Phosphorus 3.5 mg/dL (2.5-4.5); Potassium 4.4 mmol/L (3.4-5.0); Sodium 140 mmol/L (137-145)
[2022-12-28 10:17] LABS: Complement C3 112 mg/dL (88-165)
[2022-12-28 10:26] LABS: Appearance Urine Clear (Clear); Bilirubin Urine Negative (Negative); Blood Urine Negative (Negative); Color Urine Yellow (Yellow); Glucose Urine UA Negative (Negative); Ketones Urine Negative (Negative); Leukocyte Esterase Ur Negative LEU/UL (NEGATIVE); Nitrate Urine Negative (Negative); Protein Urine Negative (Negative); Specific Grav Ur 1.014 (1.001-1.035); Urobilinogen Urine 0.2 mg/dL (<2.0); pH Urine 6.5 (5.0-9.0)
[2022-12-28 10:44] LABS: Erythrocyte Sedimentation Rate 8 mm/hr (0-20)
[2022-12-28 10:50] LABS: Add Urine Microscopic? NO
[2022-12-31 09:28] LABS: Kappa\\Lambda Light Chains 1.24 (0.26-1.65); Lambda Light Chain 16.1 mg/L (5.7-26.3)
[2023-01-01 17:55] LABS: Complement Total CH50 63 U/mL (31-60)
== END 2022-12-28 09:08 | disposition home or self-care (01) ==
PROVIDERS: PCP Family Medicine; Visit Provider Internal Medicine Nephrology
DX: R94.4 Abnormal results of kidney function studies (principal)
CPT/HCPCS: 36415; 80069; 81003; 82550; 82570; 83883; 84156; 85027; 85652; 86038; 86160; 86162; 86334

== ENCOUNTER 2023-01-04 08:36 | Outpatient (CLI) | payer BC, SELFPAY ==
[2023-01-13 15:53] LABS: Albumin 41 %; Creat 24 Hr 1.16 g/24 h (0.50-2.15); Measured Kappa Chains <1.00 mg/dL (<2.00); Measured Lambda Chains <1.00 mg/dL (<2.00); Pro/Creat Ratio 161 mg/g creat (<150); Protein,total, 24 Hr Ur 187 mg/24 h (<150)
== END 2023-01-04 08:37 | disposition home or self-care (01) ==
PROVIDERS: PCP Family Medicine; Visit Provider Internal Medicine Nephrology
DX: R94.4 Abnormal results of kidney function studies (principal)
CPT/HCPCS: 86335

== ENCOUNTER 2023-02-01 09:53 | Outpatient (CLI) | payer BC, SELFPAY ==
[2023-02-01 10:32] LABS: Creatinine Urine 81.4 mg/dL; Total Protein Urine Random 16 mg/dL
[2023-02-01 10:35] LABS: Albumin Level 4.1 g/dL (3.5-5.1); Anion Gap 3 mmol/L (8-16); Blood Urea Nitrogen 12 mg/dL (7-17); Carbon Dioxide 28 mmol/L (22-30); Chloride 105 mmol/L (98-107); Estimated Glomerular Filt Rate > 60; Glucose 96 mg/dL (65-110); Phosphorus 3.5 mg/dL (2.5-4.5); Potassium 4.6 mmol/L (3.4-5.0); Sodium 136 mmol/L (137-145)
== END 2023-02-01 09:54 | disposition home or self-care (01) ==
LOC: ANHLAB 09:54
PROVIDERS: PCP Family Medicine; Visit Provider Internal Medicine Nephrology
DX: R94.4 Abnormal results of kidney function studies (principal)
CPT/HCPCS: 36415; 80069; 82570; 84156

== ENCOUNTER → 2023-05-03 15:19 | Outpatient (CLI) | payer BC, SELFPAY ==
--- NOTE | ~2023-05-03 | MM_ITS ---
EXAMINATION: MM screening [facility] BI w gautam HISTORY: Screening TECHNIQUE: Craniocaudal and mediolateral oblique 3-D tomosynthesis images were obtained and synthetic 2-D images were generated. CAD analysis was submitted and interpreted. COMPARISON: Comparison to multiple prior studies sequentially, with oldest reviewed study dated 09/2021. BREAST PARENCHYMAL COMPOSITION: FINDINGS: There is fat necrosis in the upper outer quadrant of the left breast. There is no evidence of suspicious mass, calcification, or architectural distortion to suggest malignancy in either breast . There has been no suspicious interval change. IMPRESSION: 1. No mammographic evidence of malignancy. 2. Recommend routine screening mammography in one year. BI-RADS Category 2: Benign finding(s). Reviewed, dictated and finalized at location A. MOTIVE INTERNET SALES CONSULTANT
== END ==
PROVIDERS: PCP Internal Medicine Hematology & Oncology; Visit Provider Internal Medicine Hematology & Oncology
DX: Z12.31 Encounter for screening mammogram for malignant neoplasm of breast (principal)
CPT/HCPCS: 77063; 77067

== ENCOUNTER 2023-05-31 14:48 | Outpatient (CLI) | payer BC, SELFPAY ==
[2023-05-31 15:01] LABS: Basophils Percent Auto 0.3 % (0.2-1.2); Eosinophils Absolute Auto 0.1 K/mm3 (0-0.3); Eosinophils Percent Auto 1.6 % (0-4.4); Hematocrit 41.2 % (37.0-47.0); Hemoglobin 12.9 g/dL (12.0-15.0); Immature Granulocyte Absolute 0.04 K/mm3 (0.00-0.031); Immature Granulocyte Percent A 0.5 % (0-0.5); Lymphocytes Absolute Auto 2.65 K/mm3 (0.9-3.2); Lymphocytes Percent Auto 30.8 % (18.3-44.2); Mean Corpuscular HGB Conc 31.3 g/dl (32-36); Mean Corpuscular Hemoglobin 27.7 pg (26-34); Mean Corpuscular Volume 88.4 fl (80-100); Mean Platelet Volume 9.8 fl (7.4-10.4); Monocytes Absolute Auto 0.6 K/mm3 (0.1-0.6); Monocytes Percent Auto 7.5 % (2.6-8.5); Neutrophils Absolute Auto 5.1 K/mm3 (1.3-6.7); Neutrophils Percent Auto 59.3 % (45.5-73.1); Platelet Count Result 284 k/mm3 (150-375); Red Blood Count 4.66 M/mm3 (4.2-5.4); Red Cell Distribution Width 13.2 % (11.5-14.5); White Blood Count 8.6 K/mm3 (4.5-10.0)
[2023-05-31 15:05] LABS: Blood Urea Nitrogen 14 mg/dL (8-26); Carbon Dioxide 26 mmol/L (22-30); Chloride 102 mmol/L (98-109); Estimated Glomerular Filt Rate > 60; Glucose 102 mg/dL (70-105); Ionized Calcium (POC) 1.23 mmol/L (1.11-1.31); Potassium 3.5 mmol/L (3.5-4.9); Sodium 142 mmol/L (138-146)
[2023-05-31 20:41] LABS: Alanine Aminotransferase 15 U/L (6-35); Alkaline Phosphatase 54 U/L (38-126); Anion Gap 6 mmol/L (8-16); Aspartate Amino Transferase 25 U/L (14-36); Bilirubin,Total 0.3 mg/dL (0.2-1.3); Blood Urea Nitrogen 14 mg/dL (7-17); Calcium 9.2 mg/dL (8.4-10.2); Carbon Dioxide 26 mmol/L (22-30); Chloride 107 mmol/L (98-107); Estimated Glomerular Filt Rate > 60; Glucose 99 mg/dL (65-110); Potassium 3.6 mmol/L (3.4-5.0); Sodium 139 mmol/L (137-145)
== END 2023-05-31 14:49 | disposition home or self-care (01) ==
LOC: ANHLAB 14:50
PROVIDERS: PCP Internal Medicine Hematology & Oncology; Visit Provider Internal Medicine Hematology & Oncology
DX: D05.12 Intraductal carcinoma in situ of left breast (principal)
CPT/HCPCS: 36415; 80047; 80053; 85025

== ENCOUNTER 2023-10-11 15:14 | Outpatient (CLI) | payer BC, SELFPAY ==
[2023-10-11 15:33] LABS: Basophils Percent Auto 0.3 % (0.2-1.2); Eosinophils Absolute Auto 0.1 K/mm3 (0-0.3); Eosinophils Percent Auto 0.7 % (0-4.4); Hematocrit 41.8 % (37.0-47.0); Hemoglobin 13.5 g/dL (12.0-15.0); Immature Granulocyte Absolute 0.02 K/mm3 (0.00-0.031); Immature Granulocyte Percent A 0.2 % (0-0.5); Lymphocytes Absolute Auto 2.73 K/mm3 (0.9-3.2); Lymphocytes Percent Auto 30.1 % (18.3-44.2); Mean Corpuscular HGB Conc 32.3 g/dl (32-36); Mean Corpuscular Hemoglobin 28.1 pg (26-34); Mean Corpuscular Volume 86.9 fl (80-100); Mean Platelet Volume 10.2 fl (7.4-10.4); Monocytes Absolute Auto 0.6 K/mm3 (0.1-0.6); Monocytes Percent Auto 6.8 % (2.6-8.5); Neutrophils Absolute Auto 5.6 K/mm3 (1.3-6.7); Neutrophils Percent Auto 61.9 % (45.5-73.1); Platelet Count Result 283 k/mm3 (150-375); Red Blood Count 4.81 M/mm3 (4.2-5.4); Red Cell Distribution Width 13.2 % (11.5-14.5); White Blood Count 9.1 K/mm3 (4.5-10.0)
[2023-10-11 21:32] LABS: Alanine Aminotransferase 15 U/L (6-35); Albumin Level 4.3 g/dL (3.5-5.1); Alkaline Phosphatase 53 U/L (38-126); Anion Gap 5 mmol/L (4-12); Aspartate Amino Transferase 24 U/L (14-36); Bilirubin,Total 0.3 mg/dL (0.2-1.3); Blood Urea Nitrogen 17 mg/dL (7-17); Calcium 9.5 mg/dL (8.4-10.2); Carbon Dioxide 27 mmol/L (22-30); Chloride 107 mmol/L (98-107); Estimated Glomerular Filt Rate > 60; Glucose 78 mg/dL (65-110); Potassium 4.2 mmol/L (3.4-5.0); Sodium 139 mmol/L (137-145)
[2023-10-13 04:39] LABS: CA 15-3 11 U/mL (<32)
== END 2023-10-11 15:15 | disposition home or self-care (01) ==
LOC: ANHLAB 15:16
PROVIDERS: PCP Family Medicine; Visit Provider Internal Medicine Hematology & Oncology
DX: D05.12 Intraductal carcinoma in situ of left breast (principal)
CPT/HCPCS: 36415; 80053; 85025; 86300

== ENCOUNTER 2024-06-05 14:48 | Outpatient (CLI) | payer BC, SELFPAY ==
--- NOTE | ~2024-06-05 | MM_ITS ---
EXAMINATION: MM screening [facility] BI w gautam HISTORY: Screening TECHNIQUE: Craniocaudal and mediolateral oblique 3-D tomosynthesis images were obtained and synthetic 2-D images were generated. CAD analysis was submitted and interpreted. COMPARISON: Comparison to multiple prior studies sequentially, with oldest reviewed study dated 12/2020. BREAST PARENCHYMAL COMPOSITION: Not dense: There are scattered areas of fibroglandular density. FINDINGS: There is fat necrosis in the upper outer quadrant of the left breast from previous lumpecto my for breast cancer. There is no evidence of suspicious mass, calcification, or architectural distor tion to suggest malignancy in either breast. There has been no suspicious interval change. IMPRESSION: 1. No mammographic evidence of malignancy. 2. Recommend routine screening mammography in one year. BI-RADS Category 2: Benign finding(s). Reviewed, dictated and finalized at location B. ERMAN
== END 2024-06-05 14:49 | disposition home or self-care (01) ==
PROVIDERS: PCP Internal Medicine Hematology & Oncology; Visit Provider Internal Medicine Hematology & Oncology
DX: Z12.31 Encounter for screening mammogram for malignant neoplasm of breast (principal); D05.12 Intraductal carcinoma in situ of left breast
CPT/HCPCS: 77063; 77067

== ENCOUNTER 2024-06-05 15:39 | Outpatient (CLI) | payer BC, SELFPAY ==
[2024-06-05 15:53] LABS: Basophils Percent Auto 0.4 % (0.2-1.2); Eosinophils Absolute Auto 0.2 K/mm3 (0-0.3); Eosinophils Percent Auto 1.7 % (0-4.4); Hemoglobin 13.2 g/dL (12.0-15.0); Immature Granulocyte Absolute 0.03 K/mm3 (0.00-0.031); Immature Granulocyte Percent A 0.3 % (0-0.5); Lymphocytes Absolute Auto 2.91 K/mm3 (0.9-3.2); Lymphocytes Percent Auto 25.7 % (18.3-44.2); Mean Corpuscular HGB Conc 32.2 g/dl (32-36); Mean Corpuscular Hemoglobin 28.3 pg (26-34); Mean Platelet Volume 9.6 fl (7.4-10.4); Monocytes Absolute Auto 0.7 K/mm3 (0.1-0.6); Monocytes Percent Auto 6.5 % (2.6-8.5); Neutrophils Absolute Auto 7.4 K/mm3 (1.3-6.7); Neutrophils Percent Auto 65.4 % (45.5-73.1); Platelet Count Result 291 k/mm3 (150-375); Red Blood Count 4.66 M/mm3 (4.2-5.4); Red Cell Distribution Width 13.3 % (11.5-14.5); White Blood Count 11.3 K/mm3 (4.5-10.0)
[2024-06-05 16:39] LABS: Anion Gap -1 mmol/L (4-12); Blood Urea Nitrogen 14 mg/dL (7-17); Calcium 9.3 mg/dL (8.4-10.2); Carbon Dioxide 32 mmol/L (22-30); Chloride 108 mmol/L (98-107); Cholesterol 155 mg/dL (0-200); Estimated Glomerular Filt Rate > 60; Glucose 101 mg/dL (65-110); HDL Direct 60 mg/dL; Potassium 4.4 mmol/L (3.4-5.0); Sodium 139 mmol/L (137-145); Triglycerides 174 mg/dL (<150)
[2024-06-05 16:50] LABS: LDL Cholesterol Direct 60 mg/dL
[2024-06-06 13:34] LABS: CA 15-3 10 U/mL (<32)
== END 2024-06-05 15:40 | disposition home or self-care (01) ==
PROVIDERS: PCP Internal Medicine Hematology & Oncology; Visit Provider Physician Assistant Medical
DX: Z12.31 Encounter for screening mammogram for malignant neoplasm of breast (principal); D05.12 Intraductal carcinoma in situ of left breast; E78.5 Hyperlipidemia, unspecified
CPT/HCPCS: 36415; 80048; 80061; 85025; 86300

== ENCOUNTER 2024-07-06 13:13 | Outpatient (CLI) | payer BC, SELFPAY ==
--- NOTE | ~2024-07-06 | XR_ITS ---
EXAMINATION: XR ribs RT 2V w CXR 2V DATE: 07/06/2024 13:37 INDICATION: Contusion of unspecified frontal wall of thorax, initial encounter. TECHNIQUE: Frontal and lateral views of the chest and 2 views on 3 radiographs of the right ribs were obtained. COMPARISON: Chest 2 views 09/11/2019 FINDINGS: CHEST TWO VIEWS: There is no pneumonia, pleural effusion, or pneumothorax. The heart size is normal. RIGHT RIBS: There is no rib fracture. Surgical clips in the right upper quadrant are likely from chol ecystectomy. IMPRESSION: 1. No rib fracture. Reviewed, dictated and finalized at location A. OOD AND SERVICE MEAT MANAGER IMPRESSION: 1. No rib fracture.
== END 2024-07-06 13:14 | disposition home or self-care (01) ==
PROVIDERS: PCP Family Medicine
DX: S20.219A Contusion of unspecified front wall of thorax, initial encounter (principal); X58.XXXA Exposure to other specified factors, initial encounter; Z91.81 History of falling
CPT/HCPCS: 71046; 71100

== ENCOUNTER 2024-12-15 08:52 | Outpatient (CLI) | payer BC, SELFPAY ==
[2024-12-15 09:04] LABS: Basophils Absolute Auto 0.1 K/mm3 (0.0-0.1); Basophils Percent Auto 0.6 % (0.2-1.2); Eosinophils Absolute Auto 0.1 K/mm3 (0-0.3); Eosinophils Percent Auto 1.3 % (0-4.4); Hematocrit 43.2 % (37.0-47.0); Hemoglobin 13.8 g/dL (12.0-15.0); Immature Granulocyte Absolute 0.02 K/mm3 (0.00-0.031); Immature Granulocyte Percent A 0.2 % (0-0.5); Lymphocytes Absolute Auto 2.46 K/mm3 (0.9-3.2); Mean Corpuscular HGB Conc 31.9 g/dl (32-36); Mean Corpuscular Hemoglobin 27.9 pg (26-34); Mean Corpuscular Volume 87.3 fl (80-100); Mean Platelet Volume 9.3 fl (7.4-10.4); Monocytes Absolute Auto 0.7 K/mm3 (0.1-0.6); Neutrophils Absolute Auto 4.9 K/mm3 (1.3-6.7); Neutrophils Percent Auto 59.9 % (45.5-73.1); Platelet Count Result 293 k/mm3 (150-375); Red Blood Count 4.95 M/mm3 (4.2-5.4); White Blood Count 8.2 K/mm3 (4.5-10.0)
[2024-12-15 09:11] LABS: Blood Urea Nitrogen 15 mg/dL (8-26); Carbon Dioxide 26 mmol/L (22-30); Chloride 104 mmol/L (98-109); Estimated Glomerular Filt Rate 57; Glucose 84 mg/dL (70-105); Ionized Calcium (POC) 1.26 mmol/L (1.11-1.31); Potassium 4.3 mmol/L (3.5-4.9); Sodium 142 mmol/L (138-146)
[2024-12-15 11:11] LABS: Alanine Aminotransferase 14 U/L (6-35); Albumin Level 4.1 g/dL (3.5-5.1); Alkaline Phosphatase 51 U/L (38-126); Anion Gap 7 mmol/L (4-12); Aspartate Amino Transferase 37 U/L (14-36); Bilirubin,Total 0.2 mg/dL (0.2-1.3); Blood Urea Nitrogen 16 mg/dL (7-17); Calcium 9.8 mg/dL (8.4-10.2); Carbon Dioxide 26 mmol/L (22-30); Chloride 107 mmol/L (98-107); Estimated Glomerular Filt Rate 59; Glucose 83 mg/dL (65-110); Potassium 4.3 mmol/L (3.4-5.0); Sodium 140 mmol/L (137-145); Total Protein 7.1 g/dL (6.3-8.2)
== END 2024-12-15 08:53 | disposition home or self-care (01) ==
LOC: ANHLAB 08:53
PROVIDERS: PCP Family Medicine; Visit Provider Internal Medicine Hematology & Oncology
DX: D05.12 Intraductal carcinoma in situ of left breast (principal)
CPT/HCPCS: 36415; 80047; 80053; 85025

== ENCOUNTER 2025-06-15 14:43 | Outpatient (CLI) | payer BC, SELFPAY ==
--- NOTE | ~2025-06-15 | MM_ITS ---
EXAMINATION: screening [facility] BI w gautam INDICATION: Asymptomatic, referred for screening mammogram. History of Left partial mastectomy 2019. COMPARISON: 06/05/2024 through 05/01/2022 TECHNIQUE: Digital Breast Tomosynthesis CC, MLO views were obtained of Both breasts with computer-aided detection to assist in interpretation of the study. FINDINGS: There are scattered areas of fibroglandular density. Posttreatment changes in Left breast are stable. No new focal dominant mass, architectural distortion, or suspicious microcalcifications are identified. There are no features to suggest malignancy. IMPRESSION: Stable benign mammogram. No evidence of malignancy in the breast. BI-RADS 2, BENIGN Reviewed, dictated and finalized at location A. OGICAL MANAGER
== END 2025-06-15 14:44 | disposition home or self-care (01) ==
LOC: MICIMG 14:45
PROVIDERS: PCP Internal Medicine Hematology & Oncology; Visit Provider Family Medicine
DX: Z12.31 Encounter for screening mammogram for malignant neoplasm of breast (principal)
CPT/HCPCS: 77063; 77067

== ENCOUNTER 2025-06-20 09:05 | Outpatient (CLI) | payer BC, SELFPAY ==
--- OUTSIDE RECORDS SUMMARY | 2025-06-20 09:10 | XMS_ITS | Clinical Summary ---
Author Organization [facility] [address] Address [address] [place] [address] Phone Care Team Providers Care Manager Flight Operations Name Role Phone Eddi Moses MD Primary Care Provider Allergies Active Allergy Reactions Criticality Noted Date Comments Codeine Nausea and Vomiting,Hives High 12/25/2008 Influenza Virus Vaccines Other (See Comments) 0 09/04/2020 Sulfa (Sulfonamide Antibiotics) Hives High 12/25/2008 Medications rosuvastatin (CRESTOR) 20 mg tablet TK 1 T PO D 02/28/2020 Active traZODone (DESYREL) 50 mg tablet 02/09/2020 Active alendronate (FOSAMAX) 70 mg tablet TK 1 T PO WEEKLY 03/28/2020 Active tamoxifen (NOLVADEX) 20 mg tabletIndication s:Ductal carcinoma in situ (DCIS) of left breast Take 1 Tablet (20 mg) by mouth daily. 90 Tablet 3 11/21/2024 Active Active Problems Problem Noted Date Diagnosed Date Intraductal papilloma of breast 08/07/2009 Overview (08/07/2009): Left 06/2007 papilloma Family history of breast cancer in sister 2009 HIGH RISK 12/25/2008 Overview (12/26/2008): FH of breast cancer - 4 maternal aunts with breast cancer; 2 sisters with breast cancer ANNAMARIA 2.9% and 39% 07/29/08 EVISTA Assessment & Plan (12/26/2008 1:47 PM CDT): Cary is 43 yrs old and is being followed for her FH of breast cancer. She started EVISTA in Jul 2008, and is doing well with it. Has cysts b/l o/w DARIUSZ. Roger was in Jul. Hypercholesteremia 12/25/2008 S/P cardiac cath 12/25/2008 Tubal ligation 12/25/2008 S/P cholecystectomy 12/25/2008 Prinzmetal angina 12/25/2008 Tobacco use disorder 12/25/2008 Hyperlipidemia Hypoglycemia Encounters Date Type Department Care Team Description 06/19/2025 External Device Data STL ABSTRACTION Provider, Abstract 06/18/2025 Orders Only [facility] Oncology and Hematology [facility] [address] [address] Michael Forman MD 05/15/2025 External Device Data [facility] ABSTRACTION Provider, Abstract 04/18/2025 External Device Data [facility] ABSTRACTION Provider, Abstract from Last 3 Months Family History Medical History Relation Name Comments Cancer Maternal Aunt 1 Cancer Maternal Aunt 2 Cancer Maternal Aunt 3 Breast Cancer Maternal Grandmother unknow n age Breast Cancer Sister early 40's Relation Name Status Comments Father Maternal Aunt 1 Maternal Aunt 2 Maternal Aunt 3 Maternal Grandmother Mother Sister Social History Tobacco Use Types Packs/Day Years Used Date Smoking Tobacco: Every Day Cigarettes 1 25 Smokeless Tobacco: Never Tobacco Cessation:Ready to Q uit: Not Asked; Counseling Given: Not Answered Alcohol Use Standard Drinks/Week Comments Yes 0 (1 standard drink = 0.6 oz pur e alcohol) rarely Comments No Sex and Gender Information Value Date Recorded Sex Assigned at Not on file Legal Sex Female 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 Gender Identity Not on file Sexual Orientation Not on file Occupation Industry Job Start Date Job End Date Not on file Not on file Not on file Not on file Last Filed Vital Signs Vital Sign Reading Time Taken Comments Blood Pressure 107/75 12/15/2024 9:14 AM CDT Pulse 82 12/15/2024 9:14 AM CDT Temperature 36.7 C (98 F) 12/15/2024 9:14 AM CDT Respiratory Rate 15 12/15/2024 9:14 AM CDT Oxygen Saturation 94% 12/15/2024 9:14 AM CDT Inhaled Oxygen Concentration - - Weight 63.8 kg (140 lb 9.6 oz) 12/15/2024 9:14 A M CDT Height 167.6 cm (5' 6) 12/01/2021 2:38 PM CDT Body Mass Index 22.69 12/01/2021 2:38 PM CDT Plan of Treatment Upcoming Encounters Date Type Department Care Team (Late st Contact Info) Description 07/06/2025 8:45 AM CONCRETE GUN OPERATOR Office Visit [facility] Oncology and Hematology - [place] [address] [facility] [address] [place] [address] Michael Forman MD [address] [place] [address] Health Maintenance Due Date Last Done Comments DTAP/TDAP/TD VACCINES (1 - Tdap) 1984 HPV/Cotest (21-29) 1986 CERVICAL CANCER SCREENING 1995 HPV/Cotest (30-65) 1995 PAP SMEAR 1995 COLORECTAL SCREENING 2010 Colorectal Cancer Screening 2010 FIT-DNA Q 3 years 2010 FIT/FOBT Q 1 year 2010 Flex Sig/CT Colonography Q 5 years 2010 Lung Cancer Screening 2015 RSV VACCINE (60+ or ) (1 - Risk 50-74 years 1-dose series) 2015 ZOSTER VACCINE (1 of 2) 2015 INFLUENZA VACCINE (#1) 2025 BREAST CANCER SCREENING 06/15/2026 06/15/20 25, 06/05/2024, 05/03/2023, Additional history exists HEPATITIS B VACCINES Aged Out No long er eligible based on patient's age to complete this topic Procedures Procedure Name Priority Date/Time Associated Diagnosis Comments MAMMO SCREENING BILAT Routine 06/15/2025 9:17 AM CONCRETE GUN OPERATOR from Last 3 Months Results * MAMMO SCREENING BILAT (06/15/2025 9:17 AM CONCRETE GUN OPERATOR) Anatomical Region Laterality Modality Breast Bilateral Mammography Michael Forman MD MAMMO ORDERABLES Final Result from Last 3 Months Insurance BCBS BLUE ACCESS/TRUE BLUE PPO BCBS BLUE ACCESS/TRUE BLUE PPO Care Teams Manager Flight Operations Relationship Specialty Start Date End Date Eddi Moses MD [address] [place] [id number] PCP - General Family Practice 04/08/20
--- OUTSIDE RECORDS SUMMARY | 2025-06-20 09:10 | XMS_ITS | Clinical Summary ---
Author Organization [facility] [employer] Address [address] [place] [address] Care Team Providers Care Physician Coder Name Role Phone Whitney Yoder MD Unavailable Source Comments [facility] [employer],non-owned Affiliates and Associated Physician Practices is amultiple site organization consisting of ambulatory clinics and hospital sitesin [place], [place] and [place]. This disclosure is being madepursuant to the Care Everywhere program and may not contain all information available regarding this patient. Last updated 18.[facility] [employer] Allergies Active Allergy Reactions Criticality Noted Date Comments Codeine 07/14/2016 Medications * Be aware that medications may not be up to date on this document. Alwaysverify current medications with the patient. benzonatate (TESSALON) 200 MG capsule Take 1 Cap by mouth 3 times daily 30 Cap 07/14/2016 Active Active Problems No known active problems Resolved Problems Problem Noted Date Diagnosed Date Resolved Date Cough 07/14/2016 08/11/2016 Social History Tobacco Use Types Packs/Day Years Used Date Smoking Tobacco: Every Day Comments No Sex and Gender Information Value Date Recorded Sex Assigned at Not on file Legal Sex Female 6:22 AM DOG BATHER Gender Identity Not on file Sexual Orientation Not on file Last Filed Vital Signs Vital Sign Reading Time Taken Comments Blood Pressure 100/74 07/14/2016 10:44 AM DOG BATHER Pulse 102 07/14/2016 10:44 AM DOG BATHER Temperature 37.2 C (98.9 F) 07/14/2016 10:44 AM DOG BATHER Respiratory Rate 20 07/14/2016 10:44 AM DOG BATHER Oxygen Saturation 99% 07/14/2016 10:44 AM DOG BATHER Inhaled Oxygen Concentration - - Weight 59 kg (130 lb) 07/14/2016 10:44 AM DOG BATHER Height 170.2 cm (5' 7) 07/14/2016 10:44 AM DOG BATHER Body Mass Index 20.36 07/14/2016 10:44 AM DOG BATHER Plan of Treatment Health Maintenance Due Date Last Done Comments COLOGUARD (AGES 45-75) - COL ON CA SCREENING 1965 COLON MONITORING 1965 COLONOSCOPY - COLON CA SCREENING 1965 CT COLONOGRAPHY - COLON CA SCREENING 1965 Colorectal Cancer Screening 1965 FIT - COLON CA SCREENING 1965 FLEX SIG - COLON CA SCREENING 1965 LIPID TESTING 1965 MAMMOGRAM 1965 HIV SCREENING 1980 HEPATITIS C SCREENING 05/08/1983 DTAP/TDAP/TD VACCINES (1 - Tdap) 1984 PNEUMOCOCCAL VACCINE 50+ (1 of 1 - PCV) 2015 ZOSTER VACCINE (1 of 2) 2015 DEPRESSION SCREENING 06/28/2024 COVID-19 VACCINE (1 - 2024-2 6 season) 2025 INFLUENZA VACCINE (#1) 2025 Respiratory Syncytial Virus (RSV) Vaccine Pt: or over 60 yrs (1 - 1-dose 75+ series) 2040 HEPATITIS B VACCINE Aged Out No longe r eligible based on patient's age to complete this topic HIB VACCINE Aged Out No longer eligi ble based on patient's age to complete this topic HPV VACCINE Aged Out No longer eligi ble based on patient's age to complete this topic MENINGOCOCCAL (Group B) VACC INE SHARED DECISION-MAKING Aged Out No longer eligibl e based on patient's age to complete this topic MENINGOCOCCAL GROUPS A/C/Y/W VACCINE Aged Out No longer eligible b ased on patient's age to complete this topic Insurance ANTHEM ANTHEM Care Teams Physician Coder Relationship Specialty Start Date End Date Whitney Yoder MD [address] [place] [address] Physician [employer] News Producer 05/06/16
--- OUTSIDE RECORDS SUMMARY | 2025-06-20 09:10 | XMS_ITS | Encounter Summary ---
Author Organization [facility] Address [address] [place] [address] Care Team Providers Care Metal Cleaner Name Role Phone Eddi Moses MD Primary Care Provider Encounter Details Date Type Department Care Team (Late Contact Info) Description 06/18/2025 Orders Only [facility] Oncology and Hematology - [place] [address] [place] [address] Michael Forman MD [facility] [place] [phone] Social History Tobacco Use Types Packs/Day Years Used Date Smoking Tobacco: Every Day Cigarettes 1 25 Smokeless Tobacco: Never Alcohol Use Standard Drinks/Week Comments Yes 0 (1 standard drink = 0.6 oz pur e alcohol) rarely Comments No Sex and Gender Information Value Date Recorded Sex Assigned at Not on file Legal Sex Female 3:29 AM CHEMIST ENZYMES Gender Identity Not on file Sexual Orientation Not on file Occupation Industry Job Start Date Job End Date Not on file Not on file Not on file Not on file documented as of this encounter Plan of Treatment Upcoming Encounters Date Type Department Care Team (Late Contact Info) Description 07/06/2025 8:45 AM CHEMIST ENZYMES Office Visit [facility] Oncology and Hematology - [place] [address] [place] [address] Michael Forman MD [address] [place] [address] documented as of this encounter Procedures Procedure Name Priority Date/Time Associated Diagnosis Comments MAMMO SCREENING BILAT Routine 06/15/2025 9:17 AM CHEMIST ENZYMES documented in this encounter Results * MAMMO SCREENING BILAT (06/15/2025 9:17 AM CHEMIST ENZYMES) Anatomical Region Laterality Modality Breast Bilateral Mammography Michael Forman MD MAMMO ORDERABLES Final Result documented in this encounter Visit Diagnoses Not on filedocumented in this encounter Care Teams Metal Cleaner Relationship Specialty Start Date End Date Eddi Moses MD [address] [place] [address] PCP - General Family Practice 04/08/20 documented as of this encounter
--- OUTSIDE RECORDS SUMMARY | 2025-06-20 09:10 | XMS_ITS | Encounter Summary ---
Author Organization [facility] Address [address] [place] [address] Care Team Providers Care Global Cto Name Role Phone Eddi Moses MD Primary Care Provider Encounter Details Date Type Department Care Team (Late Contact Info) Description 06/19/2025 External Device Data [facility] ABSTRACTION Provider, Abstract NO ADDRESS ON FILE Social History Tobacco Use Types Packs/Day Years Used Date Smoking Tobacco: Every Day Cigarettes 1 25 Smokeless Tobacco: Never Alcohol Use Standard Drinks/Week Comments Yes 0 (1 standard drink = 0.6 oz pur e alcohol) rarely Comments No Sex and Gender Information Value Date Recorded Sex Assigned at Not on file Legal Sex Female 3:29 AM PERFORMANCE INSTRUCTOR Gender Identity Not on file Sexual Orientation Not on file Occupation Industry Job Start Date Job End Date Not on file Not on file Not on file Not on file documented as of this encounter Plan of Treatment Upcoming Encounters Date Type Department Care Team (Late Contact Info) Description 07/06/2025 8:45 AM PERFORMANCE INSTRUCTOR Office Visit [facility] Oncology and Hematology - [place] [address] [facility] [address] [place] [address] Michael Forman MD [address] [facility] [address] [place] [address] documented as of this encounter Visit Diagnoses Not on filedocumented in this encounter Care Teams Global Cto Relationship Specialty Start Date End Date Eddi Moses MD [address] [place] [id number] PCP - General Family Practice 04/08/20 documented as of this encounter
--- OUTSIDE RECORDS SUMMARY | 2025-06-20 09:10 | XMS_ITS | Encounter Summary ---
Author Organization [facility] Address [address] [place] [address] Care Team Providers Care Electronic Field Service Engineer Name Role Phone Eddi Moses MD Primary Care Provider Encounter Details Date Type Department Care Team (Late Contact Info) Description 05/14/2020 Chart Note [facility] Radiation Therapy [address] [place] [address] [place] [address] [place] [address] Social History Tobacco Use Types Packs/Day Years Used Date Smoking Tobacco: Every Day Cigarettes 0.8 25 Smokeless Tobacco: Never Alcohol Use Standard Drinks/Week Comments Yes 0 (1 standard drink = 0.6 oz pur e alcohol) rarely Comments No Sex and Gender Information Value Date Recorded Sex Assigned at Not on file Legal Sex Female 3:29 AM SHOT BAGGER Gender Identity Not on file Sexual Orientation Not on file Occupation Industry Job Start Date Job End Date Not on file Not on file Not on file Not on file documented as of this encounter Plan of Treatment Upcoming Encounters Date Type Department Care Team (Late Contact Info) Description 07/06/2025 8:45 AM SHOT BAGGER Office Visit [facility] Oncology and Hematology - [place] [address] [facility] [address] [place] [address] Michael Forman MD [address] [facility] [address] [place] [address] documented as of this encounter Visit Diagnoses Not on filedocumented in this encounter Care Teams Electronic Field Service Engineer Relationship Specialty Start Date End Date Eddi Moses MD [address] [place] [id number] PCP - General Family Practice 04/08/20 documented as of this encounter
--- OUTSIDE RECORDS SUMMARY | 2025-06-20 09:10 | XMS_ITS | Clinical Summary ---
Author Organization [employer] [facility] Address [address] [facility] [place] [address] Care Team Providers Care Global Marketing Operations Manager Name Role Phone No, Pcp UNDERCOVER OPERATOR Primary Care Provider Unavailabl e Allergies Active Allergy Reactions Criticality Noted Date Comments Rebecca Jones 05/14/2015 Medications No known medications Social History Tobacco Use Types Packs/Day Years Used Date Smoking Tobacco: Every Day Tobacco Cessation:Ready to Q uit: No; Counseling Given: Yes Comments No Sex and Gender Information Value Date Recorded Sex Assigned at Not on file Legal Sex Female 9:49 AM EST Gender Identity Not on file Sexual Orientation Not on file Last Filed Vital Signs Vital Sign Reading Time Taken Comments Blood Pressure 108/82 05/14/2015 8:57 AM SHAKER REPAIRER Pulse 98 05/14/2015 8:57 AM SHAKER REPAIRER Temperature 37.5 C (99.5 F) 05/14/2015 8:57 AM SHAKER REPAIRER Respiratory Rate 18 05/14/2015 8:57 AM SHAKER REPAIRER Oxygen Saturation 96% 05/14/2015 8:57 AM SHAKER REPAIRER Inhaled Oxygen Concentration - - Weight - - Height - - Body Mass Index - - Plan of Treatment Not on file Medical Devices Not on file Care Teams Global Marketing Operations Manager Relationship Specialty Start Date End Date No, Pcp, UNDERCOVER OPERATOR N/A Do not use PCP - General 05/14/15
[2025-06-20 09:51] LABS: Hematocrit 43.1 % (37.0-47.0); Hemoglobin 13.6 g/dL (12.0-15.0); Immature Granulocyte Percent A 0.2 % (0-0.5); Lymphocytes Absolute Auto 2.38 K/mm3 (0.9-3.2); Mean Corpuscular HGB Conc 31.6 g/dl (32-36); Mean Corpuscular Hemoglobin 27.6 pg (26-34); Mean Corpuscular Volume 87.4 fl (80-100); Nucleated Red Blood Cells Absolute Auto 0.000 K/mm3 (0.0-0.012); Nucleated Red Blood Cells Perc 0.0 % (0.0-0.2); Platelet Count Result 316 k/mm3 (150-375); Red Blood Count 4.93 M/mm3 (4.2-5.4); White Blood Count 8.4 K/mm3 (4.5-10.0)
[2025-06-20 10:14] LABS: Alanine Aminotransferase 19 U/L (6-35); Albumin Level 4.2 g/dL (3.5-5.1); Alkaline Phosphatase 53 U/L (38-126); Anion Gap 5 mmol/L (4-12); Aspartate Amino Transferase 44 U/L (14-36); Bilirubin,Total 0.4 mg/dL (0.2-1.3); Blood Urea Nitrogen 12 mg/dL (7-17); Calcium 9.3 mg/dL (8.4-10.2); Carbon Dioxide 27 mmol/L (22-30); Chloride 108 mmol/L (98-107); Cholesterol 167 mg/dL (0-200); Estimated Glomerular Filt Rate > 60; Glucose 85 mg/dL (65-110); HDL Direct 62 mg/dL; Potassium 4.3 mmol/L (3.4-5.0); Sodium 140 mmol/L (137-145); Total Protein 7.4 g/dL (6.3-8.2); Triglycerides 113 mg/dL (<150)
[2025-06-20 10:49] LABS: Thyroid Stimulating Hormone 3.990 uIU/mL (0.465-4.680)
== END 2025-06-20 09:06 | disposition home or self-care (01) ==
PROVIDERS: PCP Family Medicine; Visit Provider Physician Assistant Medical
DX: F41.9 Anxiety disorder, unspecified (principal); E78.5 Hyperlipidemia, unspecified; R00.2 Palpitations
CPT/HCPCS: 36415; 80053; 80061; 84443; 85025